=== PATIENT | female | born 1940 | race Caucasian/White ===

== ENCOUNTER → 2020-08-30 14:00 | Outpatient (BNVA) | payer MEDICARE, OTHER, SELFPAY | PROVIDERS: PCP Internal Medicine; Visit Provider Internal Medicine | DX: R53.83 Other fatigue (principal); F32.9 Major depressive disorder, single episode, unspecified; I10 Essential (primary) hypertension; Z79.899 Other long term (current) drug therapy | CPT/HCPCS: 80053; 82607; 82746; 83036; 83550; 84443; 85025 ==

== ENCOUNTER 2021-02-09 13:07 | Emergency (ER) | payer MEDICARE, SELFPAY ==
[2021-02-09 13:41] VITALS: BP 137/85; PULSE 85; RESP 18; TEMP 36.9; O2SAT 95; BMI 32.3
--- NOTE | 2021-02-09 14:02 | CT_ITS ---
WS: [id number] CT FACIAL BONES TECHNIQUE: Noncontrast facial bones with coronal and sagittal reformatted images. CLINICAL INFORMATION: fall COMPARISON: None. DLP: 724.[address] scans at [facility] use at least one of these dose optimization techniques: automat ed exposure control; mA and/or kV adjustment per patient size (includes targeted exams where dose is matched to clinical indication); or iterative reconstruction. FINDINGS: Soft tissue edema overlying the right orbit with soft tissue laceration. Chronic opacification left m axillary sinus. Bony orbits are normal in appearance. No evidence of orbital fracture. Lateral orbits are normal. Normal lamina papyracea. Orbital floor is normal. No evidence of mandibular fracture or dislocation. Mastoid air cells are well aerated. Anterior nasal bones are normal. Normal zygoma.Normal pterygoid plates. Normal posterior nasopharynx. Normal parapharyngeal fat. CT/CT facial bones wo con* [id number] IMPRESSION: 1. Soft tissue laceration overlying the right orbit. No orbital fractures. 2. No acute facial fractures. 3. Chronic opacification left maxillary sinus.
--- NOTE | 2021-02-09 14:02 | CT_ITS ---
WS: [id number] CT CERVICAL TRAUMA TECHNIQUE: Noncontrast CT of the cervical spine with coronal and sagittal reformatted images. CLINICAL INFORMATION: fall COMPARISON: None. DLP: 793.[address] scans at [facility] use at least one of these dose optimization techniques: automat ed exposure control; mA and/or kV adjustment per patient size (includes targeted exams where dose is matched to clinical indication); or iterative reconstruction. FINDINGS: Reversal of the normal cervical lordosis. Slight anterolisthesis C3 on C4 and C4 on C5. Disc space na rrowing worse at C5-C6 and C6-C7 with osteophytic ridging. Normal craniocervical junction. Normal C1-C2 articulation. Dens is normal in appearance. Normal occip ital condyles. No high-grade spinal canal narrowing. Normal C1 ring. Mild spondylitic changes. Normal prevertebral soft tissues. Mastoids air cells are well aerated. CT/CT cervical spin wo con* [id number] IMPRESSION: No evidence of acute fracture or dislocation. Reversal the normal cervical lord osis.
--- NOTE | 2021-02-09 14:02 | CT_ITS ---
WS: [id number] CT HEAD TECHNIQUE: Noncontrast CT of the head obtained from the skullbase to the vertex. CLINICAL INFORMATION: fall COMPARISON: None. DLP: 823.[address] scans at [facility] use at least one of these dose optimization techniques: automat ed exposure control; mA and/or kV adjustment per patient size (includes targeted exams where dose is matched to clinical indication); or iterative reconstruction. FINDINGS: No evidence of intracranial hemorrhage or mass effect. Ventricular system and basal cisterns are calvo nt. Mild small vessel changes with moderate parenchymal volume loss. No extra-axial fluid collections . No evidence of mass or mass effect. Normal luo-white differentiation. Opacification left maxillary sinus. Paranasal sinuses are otherwise well aerated where visualized. Ma stoid air cells well aerated. Small soft tissue laceration overlying right Orbit. CT/CT head wo con* [id number] IMPRESSION: 1. No evidence of intracranial hemorrhage or mass effect. 2. Mild small vessel changes. Moderate parenchymal volume loss. 3. No acute intracranial findings.
[2021-02-09] MEDS: lidocaine 1% INJ 20 mL INJECTION (15:30)
--- NOTE | 2021-02-09 15:30 | ED_ITS ---
HPI - Fall General: Chief Complaint: Fall Stated Complaint: FALL Time Seen by Provider: 02/09/21 14:02 Source: patient Mode of arrival: ambulatory Limitations: no limitations History of Present Illness: MD complaint: fall Onset (ago): hour(s) (2) Fall from: standing Fall witnessed: yes, by family Place fall occurred: other Loss of consciousness: None Prolonged down time: no Symptoms prior to fall: none Context: tripped/slipped Location of injury: head and face Severity: mild Quality: dull Associated symptoms-after fall: Reports no associated symptoms and headache(s); Denies abdominal pain, chest pain, confusion, difficulty walking, hematuria, lightheadedness, neck pain or vertigo Review of Systems Const: Denies: fever(s), chills, body aches, change in appetite, change in weight, fatigue, malaise or diaphoresis Eyes: Denies: change in vision, blurry vision, blind spots, photophobia, eye discomfort, eye discharge, eye redness, floaters or seeing flashes ENMT: Denies: throat pain, uvular edema, enlarged tonsils, odynophagia, hoarseness, mouth pain, swelling of lips/tongue, oral sores, bleeding gums, dental pain, dry mouth, ear or mastoid pain, ear discharge, change in hearing, tinnitus, disequilibrium, nasal discharge, nasal congestion, post nasal drip or sinus pain Card: Denies: chest pain, palpitations, irregular heart rhythm, edema, s welling of feet/ankles, lightheadedness, syncope, pre-syncope, dyspnea on exertion, orthopnea, leg pain with exertion or acrocyanosis Resp: Denies: dyspnea, productive cough, non-productive cough, wheezing, stridor, pain on inspiration, change in phlegm color, hemoptysis or chest congestion GI: Denies: abdominal pain, nausea, vomiting, hematemesis, dysphagia, diarrhea, constipation, GI cramping, change in bowel habits or rectal pain : Denies: flank pain, difficulty voiding, dysuria, urinary frequency, urinary urgency, urinary hesitancy or hematuria Musc: Denies: neck pain, back pain, extremity pain, extremity swelling, joint pain, joint swelling, joint redness, joint warmth or deformity Skin/Breast: Reports: skin tenderness and other (1 cm laceration above right eyebrow); Denies: rash, pruritus, erythema, sores, new lesions, changes in skin color or dry skin Neuro: Reports: headache(s); Denies: numbness in extremities, weakness in extremities, sensory changes, lack of coordination, difficulty walking, frequent falls, dizziness, vertigo, confusion, behavioral changes, Slurred speech present, difficulty communicating thoughts or seizure-like activity Psych: Denies: anxiety, depression, suicidal ideation or homicidal ideation Endo: Denies: polyuria, polydipsia, tired all the time, cold intolerance, excessive sweating, flushing, hot flashes or heat intolerance Ozzy/Lymph: Denies: easy bruising, easy bleeding, petechiae, purpura, enlarged lymph nodes or tender lymph nodes All/Imm: Denies: urticaria, throat swelling, tongue swelling, facial swelling, acute wheezing or itchy eyes PFSH ED PFSH: Family History Other Cancer Heart disease Social History Smoking and tobacco status: never smoked Alcohol intake: never Lives independently: Yes Household members: none Housing: House Marital status: / History of recent travel: No Physical Exam Const: COMMON NORMALS: no acute distress, patient oriented x3, healthy appearing, alert and well nourished GENERAL APPEARANCE: cooperative, comfortable, well kempt and well developed; not ill appearing ORIENTATION/CONSCIOUSNESS: Yes awake, Yes oriented to person, Yes oriented to place and Yes oriented to time HENMT: COMMON NORMALS: normocephalic, atraumatic, hearing grossly normal bilaterally, external ears normal, EAC's normal, TM's normal bilaterally, Normal external nose present, Normal nasal mucous membranes and turbinates present and moist oral mucous membranes HEAD & SCALP: normal to inspection, normocephalic and atraumatic FACE & SINUS: sinuses nontender, face symmetric and Facial tenderness on exam of face and sinuses (skin tear under right eye and 1 cm linear laceration above right eyebrow) NOSE: Normal external nose present, Normal nares present, Normal nasal mucous membranes and turbinates present, No nasal discharge present and Abnormal external nose present EXTERNAL EAR: Yes external ears normal and Yes mastoids normal EXTERNAL AUDITORY CANAL: EAC's normal TYMPANIC MEMBRANE: TM's normal bilaterally MOUTH: Normal oral and palatal mucosa present, lip normal, tongue normal and Normal salivary glands and ducts present THROAT: posterior oropharynx normal, tonsils normal and uvula midline; no uvular edema Eye: COMMON NORMALS: Equal, round and reactive pupils present, EOMs intact bilaterally, conjunctivae normal, no scleral icterus and no papilledema GENERAL EYE: appearance normal, both eyes and all related structures EYELID: eyelids normal CONJUNCTIVA: Yes conjunctivae normal SCLERA: sclerae normal CORNEA: Yes corneas normal PUPIL: Yes Equal, round and reactive pupils p resent DIRECT OPHTHALMOSCOPY: Yes no papilledema Neck/C-Spine: COMMON NORMALS: full ROM, no lymphadenopathy, supple, no meningeal signs, no JVD and Thyroid normal GENERAL: Yes normal visual inspection and Yes trachea midline THYROID: Thyroid normal CERVICAL SPINE: Yes cervical ROM normal Lymph: LYMPHATIC: no lymphadenopathy noted and no lymphedema noted Chest: COMMONS NORMALS: normal inspection of the chest and normal palpation of entire chest wall Resp: COMMON NORMALS: normal respiratory effort, No retractions, No use of accessory muscles and clear to auscultation bilaterally EFFORT & INSPECTION: Yes able to speak in complete sentences and Yes symmetric chest movement AUSCULTATION: clear to auscultation bilaterally Cardio: COMMON NORMALS: no JVD, regular rate and regular rhythm RATE: r egular rate RHYTHM: regular rhythm GI: COMMON NORMALS: Normal to inspection, nondistended, normoactive bowel sounds present, Soft to palpation, non-tender, No hepatosplenomegaly present, no masses and no bruits INSPECTION: Yes normal to inspection AUSCULTATION: Yes normoactive bowel sounds PALPATION: Yes Soft to palpation and Yes No hepatosplenomegaly present PERCUSSION: normal to percussion RECTAL EXAM: deferred : COMMON NORMALS: Yes no CVA tenderness, Yes normal external appearance, Yes normal appearance of the vagina, Yes normal appearance of the cervix, Yes normal bimanual exam, Yes No adnexal tenderness and Yes no masses BLADDER/KIDNEY EXAM: Yes no CVA tenderness BIMANUAL EXAM - VAGINA & UTERUS: Yes normal bimanual exam Back/Pelvis: COMMON NORMALS: no CVA tenderness, thoracic and lumbar spine normal to inspection, no thoracic nor lumbar tenderness, thoraco-lumbar ROM normal and straight leg raise negative bilaterally THORACIC SPINE/UPPER BACK: Yes normal to inspection LUMBAR SPINE/LOWER BACK: Yes normal to inspection Extremity: COMMON NORMALS: normal to inspection, full ROM and capillary refill normal GENERAL: Yes normal exam except as noted Neuro: COMMON NORMALS: patient oriented x3, CN's II-XII intact bilaterally, moves all extremities, no focal motor deficits, no sensory deficits noted, deep tendon reflexes 2+ bilaterally and gait normal SENSORIUM/ORIENTATION: Yes a lert, Yes oriented to person, Yes oriented to place and Yes oriented to time MENINGEAL SIGNS: Yes no meningeal signs CRANIAL NERVES: Yes CN normal except as noted SPEECH: speech normal GAIT: Yes Normal gait present SENSORY EXAM: Yes extremities MOTOR EXAM: 5/5 motor strength present throughout Psych: COMMON NORMALS: mental status grossly normal, Normal thought process present, cooperative, normal affect, speech normal, activity/motor behavior normal, denies hallucinations, denies homicidal ideation and denies suicidal ideation APPEARANCE: Yes grossly normal and Yes well kempt ATTITUDE: Yes calm ACTIVITY/MOTOR BEHAVIOR: Yes appropriate eye contact SPEECH: Yes normal speech THOUGHT PROCESS: Normal thought process present THOUGHT CONTENT: Yes Normal thought content present ATTENTION/CONCENTRATION: Yes attention grossly intact MEMORY/COGNITION: Yes memory grossly intact INSIGHT: Good insight present (Psych) JUDGEMENT: Good judgement present (Ps ych) Skin: COMMON NORMALS: no rashes or lesions noted, no wounds, turgor normal, no jaundice, no petechiae and no mottling GENERAL SKIN EXAM: no rashes or lesions noted and turgor normal Procedures Laceration Laceration 1: Site: face Size (cm): 1 Description: linear Depth: simple, single layer Local Anesthetic: lidocaine 1% Amount of anesthesia used (mL): 3 Pre-repair: wound explored and irrigated extensively Skin layer closed with: nylon Size (cm): 5-0 Number of sutures: 4 Technique: simple, interrupted Course Vital Signs: Vital signs: Vital Signs Temperature 98.4 F 02/09/21 13:41 Pulse Rate 85 02/09/21 13:41 Respiratory Rate 18 02/09/21 13:41 Blood Pressure 137/85 02/09/21 13:41 Pulse Oximetry 95 02/09/21 13:41 MDM - Fall MDM Narrative: Medical decision making narrative: Pt is well appearing non toxic and in no acute distress. Pts skin tear under right eye was cleansed and derma cee applied 3 layers. Please see procedure note for suture details. Pt has no focal neuro deficits and other than facial tenderness she states she feels fine. Pt had no chest pain sob or dizziness prior to fall states she tripped on carpet. pt did not have LOC and is not on blood thinners. Pt ct head, neck and facial bones are all negative for any acute findings. I discussed with patient wound care, return precautions related to head injury as well as home care. pt verbaloized understanding. Pt tetanus was up dated today Differential Diagnosis: Fall Differential Diagnosis: Likely syncope, dislocation of shoulder region, fracture of wrist, compression fracture, concussion with loss of consciousness and concussion without loss of conscious ness Discharge Plan Discharge Condition: Stable Prescriptions: No Action budesonide-formoterol [Symbicort] 160-4.5 mcg/actuation HFA aerosol inhaler 2 puff INHALATION BID RF: 0 furosemide [Lasix] 20 mg tablet 10 mg PO QAM PRNRF: 0 valsartan-hydrochlorothiazide 320-12.5 mg tablet 1 tab PO DAILY Qty: 90 RF: 3 escitalopram oxalate 20 mg tablet 20 mg PO DAILY Qty: 90 RF: 3 budesonide-formoterol [Symbicort] 160-4.5 mcg/actuation HFA aerosol inhaler 2 puff INHALATION BID Qty: 10.2 RF: 0 Discharge Orders: Discharge ED (Routine); Ordered 02/09/21 Ordered By: Vicki Chappell Referrals: Hiro Ellis MD [Primary Care Provider] - Discharge Diet: Advance as tolerated Discharge Activity: Increase activity as tolerated Patient Instructions: Concussion/Head Injury - Adult, Laceration (ED), Skin Adhesive Care (ED) Activity Restrictions/Additional Instructions: Please return to ER or PCP for suture removal in 4-5 days or sooner if Return to the ER if: headaches that get worse weakness or numbness in any part of your body coordination problems that get worse vomiting (that occurs more than once) slurred speech problems waking up from sleep more confusion, irritability, or anxiety any symptom that seems to be getting worse Coding Level of Care Code ED Incident Coordinator for Tarsha Finch
[2021-02-09] MEDS: tetanus-diphtheria tox (adult) 0.5 mL SDV IM (15:50)
== END 2021-02-09 16:03 | disposition home or self-care (01) ==
PROVIDERS: Emergency Provider Registered Nurse; PCP Internal Medicine
DX: S01.81XA Laceration without foreign body of other part of head, initial encounter (principal); W19.XXXA Unspecified fall, initial encounter; Z23 Encounter for immunization
CPT/HCPCS: 12011; 70450; 70486; 72125; 90471; 90714; 99283

== ENCOUNTER 2021-05-06 11:17 | Outpatient (CLI) | payer MEDICARE, OTHER, SELFPAY ==
--- NOTE | 2021-05-06 11:32 | XR_ITS ---
WS: [id number] Right foot, 2 views, 05/06/2021 Clinical Data: Non-healing foot ulcer Comparison: None. Findings: No fractures or dislocations are seen. No bone destruction or erosion is noted. The soft tissues are normal. 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 There is flexion deformity of the second through fourth toes. There is a plantar spur. There are calc ifications in the jesus of small vessels. XR/XR foot RT 2V [id number] Impression: Negative for osteomyelitis.
== END 2021-05-06 11:18 | disposition home or self-care (01) ==
LOC: RAD 11:28
PROVIDERS: PCP Internal Medicine; Visit Provider Nurse Practitioner Family
DX: L97.519 Non-pressure chronic ulcer of other part of right foot with unspecified severity (principal); R63.1 Polydipsia; R35.8 Other polyuria
CPT/HCPCS: 73620; 80053; 83036

== ENCOUNTER → 2022-02-06 15:53 | Outpatient (BNVA) | payer MEDICARE, OTHER, SELFPAY | PROVIDERS: PCP Internal Medicine; Visit Provider Internal Medicine | DX: I95.1 Orthostatic hypotension (principal); I10 Essential (primary) hypertension; I73.9 Peripheral vascular disease, unspecified; R53.83 Other fatigue; K52.9 Noninfective gastroenteritis and colitis, unspecified | CPT/HCPCS: 80053; 84443; 85025 ==

== ENCOUNTER → 2022-07-14 10:37 | Outpatient (BNVA) | payer MEDICARE, OTHER, SELFPAY | PROVIDERS: PCP Internal Medicine; Visit Provider Podiatrist Foot & Ankle Surgery | DX: I73.9 Peripheral vascular disease, unspecified (principal); L60.3 Nail dystrophy; M20.41 Other hammer toe(s) (acquired), right foot; M20.42 Other hammer toe(s) (acquired), left foot; L84 Corns and callosities | CPT/HCPCS: 11056; 11721 ==

== ENCOUNTER → 2022-09-05 09:51 | Outpatient (BNVA) | payer MEDICARE, OTHER, SELFPAY | PROVIDERS: PCP Internal Medicine; Visit Provider Podiatrist Foot & Ankle Surgery | DX: I73.9 Peripheral vascular disease, unspecified (principal); L84 Corns and callosities; L60.3 Nail dystrophy; M20.41 Other hammer toe(s) (acquired), right foot; M20.42 Other hammer toe(s) (acquired), left foot | CPT/HCPCS: 11721 ==

== ENCOUNTER → 2022-10-24 10:58 | Outpatient (BNVA) | payer MEDICARE, OTHER, SELFPAY | PROVIDERS: PCP Internal Medicine; Visit Provider Podiatrist Foot & Ankle Surgery | DX: I73.9 Peripheral vascular disease, unspecified (principal); L84 Corns and callosities; L60.3 Nail dystrophy; M20.41 Other hammer toe(s) (acquired), right foot; M20.42 Other hammer toe(s) (acquired), left foot | CPT/HCPCS: 11720; 28011; 93923 ==

== ENCOUNTER → 2022-10-31 12:52 | Outpatient (BNVA) | payer MEDICARE, OTHER, SELFPAY | PROVIDERS: PCP Internal Medicine; Visit Provider Podiatrist Foot & Ankle Surgery | DX: I73.9 Peripheral vascular disease, unspecified (principal); L84 Corns and callosities; L60.3 Nail dystrophy; M20.41 Other hammer toe(s) (acquired), right foot; M20.42 Other hammer toe(s) (acquired), left foot | CPT/HCPCS: 99024 ==

== ENCOUNTER → 2022-12-12 12:45 | Outpatient (BNVA) | payer MEDICARE, OTHER, SELFPAY | PROVIDERS: PCP Internal Medicine; Visit Provider Podiatrist Foot & Ankle Surgery | DX: I73.9 Peripheral vascular disease, unspecified (principal); L84 Corns and callosities; L60.3 Nail dystrophy; M20.41 Other hammer toe(s) (acquired), right foot; M20.42 Other hammer toe(s) (acquired), left foot | CPT/HCPCS: 99213 ==

== ENCOUNTER → 2022-12-21 08:08 | Outpatient (BNVA) | payer MEDICARE, OTHER, SELFPAY | PROVIDERS: PCP Internal Medicine; Visit Provider Podiatrist Foot & Ankle Surgery | DX: M20.41 Other hammer toe(s) (acquired), right foot (principal); I73.9 Peripheral vascular disease, unspecified; M20.42 Other hammer toe(s) (acquired), left foot; L84 Corns and callosities | CPT/HCPCS: 28010 ==

== ENCOUNTER → 2023-01-23 12:04 | Outpatient (BNVA) | payer MEDICARE, SELFPAY | PROVIDERS: PCP Internal Medicine; Visit Provider Nurse Practitioner Family | DX: R39.15 Urgency of urination (principal); J06.9 Acute upper respiratory infection, unspecified | CPT/HCPCS: 81000; 87077; 87086; 87184 ==

== ENCOUNTER → 2023-02-19 14:46 | Outpatient (BNVA) | payer MEDICARE, OTHER, SELFPAY | PROVIDERS: PCP Family Medicine; Visit Provider Family Medicine | DX: M15.9 Polyosteoarthritis, unspecified (principal); F32.9 Major depressive disorder, single episode, unspecified; K52.9 Noninfective gastroenteritis and colitis, unspecified; I10 Essential (primary) hypertension | CPT/HCPCS: 80053; 80061; 85025; 86003; 86008 ==

== ENCOUNTER 2023-03-27 11:20 | Emergency (ER) | payer MEDICARE, OTHER, SELFPAY ==
[2023-03-27] VITALS (8 sets, daily range): BP systolic 122–204; BP diastolic 61–106; PULSE 64–92; RESP 18–25; TEMP 36.7; O2SAT 91–98; BMI 36.6
--- NOTE | 2023-03-27 11:40 | ECG_ITS ---
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 Measurements Intervals [place] Rate: 83 P: 0 OK: 0 QRS: 44 QRSD: 126 T: -77 QT: 356 QTc: 419 Interpretive Statements ATRIAL FIBRILLATION RIGHT BUNDLE BRANCH BLOCK [120+ ms QRS DURATION, UPRIGHT V1, 40+ ms S IN I/aVL/V4/V5/V6] MODERATE T-WAVE ABNORMALITY, CONSIDER INFERIOR ISCHEMIA [-0.1+ mV T-WAVE IN II/aVF] No previous ECG available for comparison Electronically Signed On 03-27-2023 11:58:29 CDT by Sheryl Felix M.D. [id number]
--- NOTE | 2023-03-27 11:41 | ED_ITS ---
HPI - Arrhythmia/Palpitations General: Chief Complaint: Arrhythmia/Palpitations Stated Complaint: Afib/ Low PB Time Seen by Provider: 03/27/23 11:21 History of Present Illness: Patient is having cataract surgery by this morning. Patient developed hypotension and bradycardia and went into A-fib per report. Patient was given Rigoberto-Synephrine and atropine and patient was sent to the ER for further evaluation and treatment. Patient arrived here with a pulse of 92 blood pressure in the 170s and feeling good with no complaints. Was her first cataract surgery she is scheduled to have her right cataract done in about 2 weeks. Review of Systems General: Reports: 10 or more systems reviewed and unremarkable except in HPI and below PFSH ED PFSH: Medical History Apnea, sleep Asthma, cough variant Benign hypertension Bradycardia, unspecified Major depressive disorder, recurrent, in full remission Polyneuropathy, unspecified Pulmonary HTN Surgical History History of bilateral hip arthroplasty History of total right knee replacement Family History Other Cancer Heart disease Social History Smoking and tobacco status: never smoked Alcohol intake: never Substance/Drug Use: never Lives independently: Yes Household members: none Housing: House Marital status: / Physical Exam Const: COMMON NORMALS: no acute distress, average body habitus, patient oriented x3, no limitations, healthy appearing, alert and well nourished HENMT: COMMON NORMALS: normocephalic, atraumatic, hearing grossly normal bilaterally, external ears normal, Normal external nose present and moist oral mucous membranes HEAD & SCALP: normocephalic and atraumatic NOSE: Normal external nose present EXTERNAL EAR: Yes external ears normal Neck/C-Spine: COMMON NORMALS: full ROM, no lymphadenopathy, supple, no meningeal signs, no JVD and Thyroid normal THYROID: Thyroid normal Chest: COMMONS NORMALS: normal inspection of the chest and normal palpation of entire chest wall Resp: COMMON NORMALS: normal respiratory effort, No retractions, No use of accessory muscles and clear to auscultation bilaterally AUSCULTATION: clear to auscultation bilaterally Cardio: COMMON NORMALS: no JVD, regular rate, regular rhythm, S1 normal heart sound present, S2 normal heart sound present, No gallops present (Cardio), No clicks present (Cardio), No murmurs present (Cardio) and No rub (Cardio) RATE: regular rate RHYTHM: regular rhythm HEART SOUNDS: S1 normal heart sound present and S2 normal heart sound present GI: COMMON NORMALS: Normal to inspection, nondistended, normoactive bowel sounds present, Soft to palpation, non-tender, No hepatosplenomegaly present and no masses PALPATION: Yes Soft to palpation and Yes No hepatosplenomegaly present : COMMON NORMALS: Yes no CVA tenderness BLADDER/KIDNEY EXAM: Yes no CVA tenderness Back/Pelvis: COMMON NORMALS: no CVA tenderness Neuro: COMMON NORMALS: patient oriented x3 SENSORIUM/ORIENTATION: Yes alert MENINGEAL SIGNS: Yes no meningeal signs Course Vital Signs: Vital signs: Vital Signs Temperature 98.0 F 03/27/23 11:22 Pulse Rate 75 03/27/23 16:26 Respiratory Rate 18 03/27/23 16:26 Blood Pressure 122/61 03/27/23 16:26 Pulse Oximetry 94 03/27/23 16:26 Oxygen Delivery Me thod Room Air 03/27/23 16:26 MDM - Arrhythmia/Palpitations Medical Decision Making From the local surgery center where she is having cataract surgery to the ER for further evaluation and treatment of bradycardia and hypotension. Patient was noted to have atrial fibrillation rhythm upon arrival which she carried onto the rest of her visit. Patient has no history of atrial fibrillation. Patient's initial cardiac enzymes was mildly elevated and they went up for her 2-hour troponi but stable for 6-hour troponin. Patient was reluctant to come inpatient to the hospital for further evaluation and treatment. Patient will be started on Eliquis and referred back to her family physician for further evaluation and management. Differential Diagnosis Unlikely palpitations, anxiety, sinus tachycardia, artial fibrillation, artial flutter, ventricular premature beats, supraventricular tachycardia, ventricular tachycardia or WPW Medical Records I reviewed the patient's medical records. Lab Data I reviewed the patient's lab results. 03/27/23 11:45 03/27/23 11:45 Laboratory Results WBC 9.5 10^3/uL (4.0-10.0) 03/27/23 11:45 RBC 4.41 10^6/uL (4.1-5.3) 03/27/23 11:45 Hgb 13.9 g/dL (11.5-15.3) 03/27/23 11:45 Hct 42.0 % (37.0-47.0) 03/27/23 11:45 MCV 95.2 fl (81-99) 03/27/23 11:45 MCH 31.5 pg (28.0-34.0) 03/27/23 11:45 MCHC 33.1 g/dL (30.0-36.0) 03/27/23 11:45 RDW 12.7 % (12.1-15.1) 03/27/23 11:45 Plt Count 213 10^3/cmm (130-400) 03/27/23 11:45 MPV 9.4 fL (7.4-10.4) 03/27/23 11:45 Neut % (Auto) 82.2 % 03/27/23 11:45 Lymph % (Auto) 10.8 % 03/27/23 11:45 [facility] [place] [facility] % (Auto) 4.7 % 03/27/23 11:45 Eos % (Auto) 1.6 % 03/27/23 11:45 Baso % (Auto) 0.4 % 03/27/23 11:45 Neut # (Auto) 7.77 10^3/uL (1.8-7.7) H 03/27/23 11:45 Lymph # (Auto) 1.0 10^3/uL (0.8-4.8) 03/27/23 11:45 [facility] # (Auto) 0.4 10^3/uL (0.2-0.9) 03/27/23 11:45 Eos # (Auto) 0.2 10^3/uL (0.0-0.8) 03/27/23 11:45 Baso # (Auto) 0.0 10^3/uL (0.0-0.1) 03/27/23 11:45 Nucleated RBC % (auto) 0 % 03/27/23 11:45 Nucleated RBCs # 0.0 /100WBC 03/27/23 11:45 Sodium 143 mmol/L (136-145) 03/27/23 11:45 Potassium 4.2 mmol/L (3.5-5.1) 03/27/23 11:45 Chloride 105 mmol/L (98-107) 03/27/23 11:45 Carbon Dioxide 27 mmol/L (22-29) 03/27/23 11:45 Anion Gap 15.2 (5-19) 03/27/23 11:45 BUN 21 mg/dL (8-23) 03/27/23 11:45 Creatinine 0.8 mg/dL (0.5-0.9) 03/27/23 11:45 GFR Calculation Not Reportable 03/27/23 11:45 Glucose 119 mg/dL (65-115) H 03/27/23 11:45 Calculated Osmolality 300 mOsm/kg (285-295) H 03/27/23 11:45 Calcium 9.2 mg/dL (8.5-10.5) 03/27/23 11:45 Magnesium 1.6 mg/dL (1.7-2.3) L 03/27/23 11:45 Total Bilirubin 0.6 mg/dL (0.15-1.2) 03/27/23 11:45 AST 20 U/L (0-32) 03/27/23 11:45 ALT 17 U/L (0-33) 03/27/23 11:45 Alkaline Phosphatase 67 U/L (35-105) 03/27/23 11:45 Troponin T Gen 5 ng/L 36 ng/L (0-10) H 03/27/23 17:50 Total Protein 6.5 g/dL (6.6-8.7) L 03/27/23 11:45 Albumin 4.2 g/dL (3.5-5.2) 03/27/23 11:45 Globulin 2.3 g/dL (1.3-4.6) 03/27/23 11:45 EKG Data EKG 1: I personally reviewed and interpreted this EKG as follows: EKG interpretation date: 03/27/23 EKG interpretation time: 11:50 Prior EKG tracings: not available for review Interpretation: EKG showed atrial fibrillation with ventricular rate 83 beats minute, right bundle branch block, QRS duration 126, QTc of 396, moderate T wave abnormality Discharge Plan Discharge Patient Disposition: Home Clinical Impression: Atrial fibrillation Qualifiers: Atrial fibrillation type: unspecified Qualified Code(s): I48.91 - Unspecified a trial fibrillation Condition: Stable Prescriptions: New Eliquis 5 mg tablet 5 mg PO BID Qty: 30 0RF No Action celecoxib [Celebrex] 200 mg capsule 200 mg PO BID Qty: 180 3RF Anti-Diarrhea 2 mg Tablet 4 mg PO BID pantoprazole 40 mg tablet,delayed release (DR/EC) 40 mg PO QAM valsartan-hydrochlorothiazide 80-12.5 mg tablet 1 tab PO QAM escitalopram oxalate 20 mg tablet 20 mg PO QAM Discharge Orders: Discharge ED (Routine); Ordered 03/27/23 Ordered By: Junito Garcia Referrals: Ayana Lemons DO [Primary Care Provider] - 7-10 days Patient Instructions: A-fib (Atrial Fibrillation) (ED) Activity Restrictions/Additional Instructions: Please take all your medicine as prescribed. This includes your new anticoagulant to help your blood from clotting. Please follow-up with your family practice physician for further testing such as echocardiogram, carotid ultrasound, and/or referral to a locomotive lubricating systems clerk. Coding Level of Care Code ED Steel Rule Die Maker for Tarsha Finch
--- NOTE | 2023-03-27 11:55 | XR_ITS ---
WS: [id number] PORTABLE CHEST HISTORY: palpitations COMPARISON: None available. Lungs are clear and well expanded. Slight elevation right hemidiaphragm. No pleural effusion or pneum othorax. Cardiac size: Normal. Mediastinum/Aorta: Normal mediastinum. No osseous abnormality seen. External artifacts overlying the chest. IMPRESSION: Unremarkable portable chest.
[2023-03-27 11:56] LABS: Basophils % 0.4 %; Eosinophils # 0.2 10^3/uL (0.0-0.8); Eosinophils % 1.6 %; Hemoglobin 13.9 g/dL (11.5-15.3); Lymphocytes % 10.8 %; Mean Corpuscular HGB Conc 33.1 g/dL (30.0-36.0); Mean Corpuscular Hemoglobin 31.5 pg (28.0-34.0); Mean Corpuscular Volume 95.2 fl (81-99); Mean Platelet Volume 9.4 fL (7.4-10.4); Monocytes # 0.4 10^3/uL (0.2-0.9); Monocytes % 4.7 %; Neutrophils # 7.77 10^3/uL (1.8-7.7); Neutrophils % 82.2 %; Nucleated Red Blood Cells % 0 %; Platelet Count 213 10^3/cmm (130-400); Red Blood Count 4.41 10^6/uL (4.1-5.3); Red Cell Distribution Width 12.7 % (12.1-15.1); White Blood Count 9.5 10^3/uL (4.0-10.0)
[2023-03-27 12:15] LABS: Alanine Aminotransferase 17 U/L (0-33); Albumin Level 4.2 g/dL (3.5-5.2); Alkaline Phosphatase 67 U/L (35-105); Anion Gap 15.2 (5-19); Aspartate Amino Transferase 20 U/L (0-32); Blood Urea Nitrogen 21 mg/dL (8-23); Calcium 9.2 mg/dL (8.5-10.5); Carbon Dioxide 27 mmol/L (22-29); Chloride 105 mmol/L (98-107); Globulin 2.3 g/dL (1.3-4.6); Glucose 119 mg/dL (65-115); Magnesium 1.6 mg/dL (1.7-2.3); Osmolality Calculated 300 mOsm/kg (285-295); Potassium 4.2 mmol/L (3.5-5.1); Sodium 143 mmol/L (136-145); Total Bilirubin 0.6 mg/dL (0.15-1.2); Total Protein 6.5 g/dL (6.6-8.7)
[2023-03-27 12:41] LABS: Troponin T (5th) Once 18 ng/L (0-10)
[2023-03-27] MEDS: cloNIDine 0.1 mg Tablet PO (13:07)
[2023-03-27 14:29] LABS: Troponin T (5th) Once 38 ng/L (0-10)
[2023-03-27 18:19] LABS: Troponin T (5th) Once 36 ng/L (0-10)
[2023-03-27] MEDS: apixaban 5 mg Tablet PO (19:03)
== END 2023-03-27 19:54 | disposition home or self-care (01) ==
PROVIDERS: Emergency Provider Emergency Medicine; PCP Family Medicine
DX: I48.91 Unspecified atrial fibrillation (principal); I10 Essential (primary) hypertension
CPT/HCPCS: 36415; 71045; 80053; 83735; 84484; 85025; 93005; 96365; 96366; 99285; J3475

== ENCOUNTER → 2023-04-17 14:34 | Outpatient (BNVA) | payer MEDICARE, OTHER, SELFPAY | PROVIDERS: PCP Family Medicine; Visit Provider Family Medicine | DX: M15.9 Polyosteoarthritis, unspecified (principal); R31.9 Hematuria, unspecified | CPT/HCPCS: 81003 ==

== ENCOUNTER 2023-05-01 12:17 | Outpatient (CLI) | payer MEDICARE, SELFPAY ==
--- NOTE | 2023-05-01 12:45 | US_ITS ---
WS: [id number] RENAL ULTRASOUND HISTORY: hematuria COMPARISON: None available. TECHNIQUE: 2-D and color Doppler imaging of the kidney submitted. Right kidney: 10.4 cm x 3.9 cm x 5.4 cm. Cortex: 1.1 cm Normal echogenicity with no hydronephrosis or mass. Left kidney: 8.9 cm x 3.9 cm x 5.1 cm. Cortex: 1.0 cm Low normal size LEFT kidney with mild cortical thinning. No mass or obstruction. Aorta: Normal. Urinary Bladder: Normal distention. IMPRESSION: 1. No renal obstruction. 2. Low normal size LEFT kidney. 3. No renal calcifications or solid mass identified.
--- NOTE | 2023-05-01 13:15 | USCV_ITS ---
Milana Galvan Age: 83 Gender: F : 1940 Exam Date: 05/01/2023 13:38 Ordering Phys: Ayana Lemons DO Technologist: Irineo Friedman Exam Location: [facility] Indication: chest pain BP: 120 / 70 HR: 74 Rhythm: Sinus Technical Quality: Adequate MEASUREMENTS (Male / Female) Normal Values 2D ECHO LV Diastolic Diameter PLAX 4.4 cm 4.2 - 5.9 / 3.9 - 5.3 cm LV Systolic Diameter PLAX 2.7 cm IVS Diastolic Thickness 1.1 cm 0.6 - 1.0 / 0.6 - 0.9 cm IVS Systolic Thickness 1.3 cm LVPW Diastolic Thickness 1.0 cm 0.6 - 1.0 / 0.6 - 0.9 cm LVPW Systolic Thickness 1.5 cm LVOT Diameter 2.0 cm LV Ejection Fraction 2D Teich 70.3 % LA Diameter 4.5 cm IVC Diameter 1.9 cm M-MODE Aortic Annulus Diameter 2.9 cm LA Ao Ratio MM 1.6 MV E Point Septal Separation 1.3 cm DOPPLER AV Peak Velocity 106.0 cm/s LVOT Peak Velocity 101.0 cm/s AV Area Cont Eq vti 3.6 cm squared AV Area Cont Eq pk 3.1 cm squared MV Area PHT 4.2 cm squared Mitral E to A Ratio 3.1 MV E' Velocity 61.5 cm/s Mitral E to MV E' Ratio 9.5 Mitral E to LV E' Lateral Ratio 9.2 Mitral E to LV E' Septal Ratio 10.1 TR Peak Velocity 325.0 cm/s TR Peak Gradient 42.3 mmHg TV Peak E Velocity 115.0 cm/s Right Atrial Pressure 3.0 mmHg Pulmonary Artery Systolic Pressu 45.3 mmHg RV Acceleration Time 0.1 s FINDINGS Left Ventricle Normal left ventricular size and systolic function, EF 70%.mild left ventricular hypertrophy. No regional wall motion abnormalities. Right Ventricle Normal right ventricular size and systolic function. Right Atrium Moderately increased right atrial size. Left Atrium Moderately increased left atrial size. Mitral Valve Mild mitral valve regurgitation. Aortic Valve Thickened aortic valve. Tricuspid Valve Bpxgdgjb-vn-jlxwkh tricuspid valve regurgitation. Estimated pulmonary artery peak systolic pressure 45 mmHg Pulmonic Valve Trace pulmonary valve regurgitation. Pericardium No pericardial effusion. Aorta Normal ascending aorta dimension. IVC The inferior vena cava appears normal. CONCLUSIONS Normal left ventricular size and systolic function, EF 70%.mild left ventricular hypertrophy. No regional wall motion abnormalities. Axcdeasq-mi-coiqlb tricuspid valve regurgitation. Estimated pulmonary artery peak systolic pressure 45 mmHg Moderate biatrial enlargement. Mild mitral valve regurgitation. Thickened aortic valve. Trace pulmonary valve regurgitation. There is no pericardial effusion. There are no intracardiac masses. Compared to the study from 10/31/2017, there is significant worsening of the tricuspid regurgitation Dr Edgar Winston MD [facility] (Electronically Signed) Final Date: 01 May 2023 20:06 S
== END 2023-05-01 12:18 | disposition home or self-care (01) ==
PROVIDERS: PCP Family Medicine; Visit Provider Family Medicine
DX: I48.91 Unspecified atrial fibrillation (principal); R31.9 Hematuria, unspecified; R07.9 Chest pain, unspecified; I07.1 Rheumatic tricuspid insufficiency; I34.0 Nonrheumatic mitral (valve) insufficiency
CPT/HCPCS: 76770; 93306

== ENCOUNTER 2023-05-04 07:17 | Outpatient (CLI) | payer MEDICARE, SELFPAY ==
[2023-05-04 08:22] VITALS: BMI 35.5
--- NOTE | 2023-05-04 08:22 | ECG_ITS ---
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 Interpretive Statements NAME OF STUDY: LEXISCAN SESTAMIBI STRESS TEST INDICATION: [new onseet afib, ] Procedure: At the baseline, the blood pressure was 144/73 mmHg with a heart rate of 78 bpm. The electrocardiogram showed atrial fibrillation, right bundle branch block. The Lexiscan was infused over a period of 20 seconds. A total of 0.4 mg of Lexiscan was infused. The stress phase was continued for a total of 5 minutes. Heart rate was at the end of stress phase was 90 bpm and a blood pressure of 123/72 mmHg. The EKG at the peak infusion revealed atrial fibrillation with no significant ST-T wave changes. Occasional PVCs were seen. Sestamibi was injected 20 seconds after the Lexiscan infusion. Blood pressure at the end of recovery phase was 117/69 mmHg with a heart rate of 83 bpm. Conclusion: 1. Normal EKG response to Lexiscan infusion 2. No Lexiscan induced chest pain or cardiac arrhythmia. 3. Normal blood pressure and heart rate response. 4. Sestamibi/sestamibi perfusion scan pending; see separate report. Electronically Signed On 05-14-2023 12:36:17 CDT by Nba Tamez M.D. [id number]
--- NOTE | 2023-05-04 08:23 | NMCV_ITS ---
NM jose perf SPECT r/s* [id number] Milana Galvan Age: 83 Gender: F : 1940 Exam Date: 05/04/2023 08:50 Ordering Phys: Ayana Lemons DO Technologist: PATRICIA Ochao Exam Location: [facility] Indications: AFIB STRESS TEST Please see separate stress test report in [facility] for full findings IMAGE PROTOCOL Rest/Stress 1 Lexiscan Day Radiopharmaceutical Dose (mCi) Administration Site Administered by Rest: Tc-99m 10.7 IV PATRICIA Joseph Sestamibi Stress:Tc-99m 32.7 IV PATRICIA Stephenson Sestamibi Rest: 04-May-2023 60 Discovery 630 Stress: 04-May-2023 30 Discovery 630 0.4mg Lexiscan. Images obtained in supine and prone position. SPECT RESULTS Technical Quality: Excellent Raw Data Analysis: Normal Image Corrections: No attenuation or motion correction applied Summed Stress Score: 0 Summed Rest Score: 1 Summed Difference Score: 0 PERFUSION FINDINGS SPECT images demonstrate homogeneous tracer distribution throughout the myocardium. FUNCTIONAL RESULTS (calculated via Gated SPECT) Stress Image LV EF (%): 87 Stress EDV (mL):53 TID: 1.55 Stress ESV (mL):7 FUNCTIONAL FINDINGS: There is normal left ventricular systolic function. TID ratio is elevated. IMPRESSIONS 1. Normal myocardial perfusion imaging with no evidence of ischemia 2. LV systolic function is normal 3. TID ratio is elevated but in absence of significant perfusion abnormality, significance of this finding is equivocal. Nba Tamez MD (Electronically Signed) Final Date: 04 May 2023 13:24 S
[2023-05-04] MEDS: regadenoson 0.4 Mg/5 ml Syringe IVP (09:24)
[2023-05-04 09:49] VITALS: BP 117/69; PULSE 86
== END 2023-05-04 07:18 | disposition home or self-care (01) ==
PROVIDERS: PCP Family Medicine; Visit Provider Family Medicine
DX: I48.91 Unspecified atrial fibrillation (principal)
CPT/HCPCS: 36415; 78452; 93017; 96374; A9500; J2785

== ENCOUNTER → 2023-05-16 12:32 | Outpatient (BNVA) | payer MEDICARE, SELFPAY | PROVIDERS: PCP Family Medicine; Referring Provider Family Medicine; Visit Provider Internal Medicine | DX: R07.9 Chest pain, unspecified (principal); I48.91 Unspecified atrial fibrillation; I45.10 Unspecified right bundle-branch block; I10 Essential (primary) hypertension | CPT/HCPCS: 93005; 99204 ==

== ENCOUNTER → 2023-11-15 14:52 | Outpatient (BNVA) | payer MEDICARE, SELFPAY | PROVIDERS: PCP Family Medicine; Visit Provider Internal Medicine | DX: I48.91 Unspecified atrial fibrillation (principal); I10 Essential (primary) hypertension; Z79.01 Long term (current) use of anticoagulants | CPT/HCPCS: 99214 ==

== ENCOUNTER 2023-11-16 14:26 | Outpatient (CLI) | payer MEDICARE, SELFPAY ==
[2023-11-16 15:15] LABS: Anion Gap 17.1 (5-19); Blood Urea Nitrogen 28 mg/dL (8-23); Calcium 9.7 mg/dL (8.5-10.5); Carbon Dioxide 25 mmol/L (22-29); Chloride 107 mmol/L (98-107); Glucose 99 mg/dL (65-115); NT Pro B Type Natriuretic Pept 2867 pg/mL (0-450); Osmolality Calculated 306 mOsm/kg (285-295); Potassium 4.1 mmol/L (3.5-5.1); Sodium 145 mmol/L (136-145)
== END 2023-11-16 14:27 | disposition home or self-care (01) ==
LOC: LAB 14:28
PROVIDERS: PCP Family Medicine; Visit Provider Internal Medicine
DX: I48.91 Unspecified atrial fibrillation (principal); I10 Essential (primary) hypertension
CPT/HCPCS: 36415; 80048; 83880

== ENCOUNTER 2023-12-05 11:36 | Outpatient (CLI) | payer MEDICARE, SELFPAY ==
[2023-12-05 12:38] LABS: Anion Gap 18.1 (5-19); Blood Urea Nitrogen 29 mg/dL (8-23); Calcium 9.2 mg/dL (8.5-10.5); Carbon Dioxide 26 mmol/L (22-29); Chloride 100 mmol/L (98-107); Glucose 124 mg/dL (65-115); NT Pro B Type Natriuretic Pept 1893 pg/mL (0-450); Osmolality Calculated 297 mOsm/kg (285-295); Potassium 4.1 mmol/L (3.5-5.1); Sodium 140 mmol/L (136-145)
== END 2023-12-05 11:37 | disposition home or self-care (01) ==
LOC: LAB 11:38
PROVIDERS: PCP Family Medicine; Visit Provider Internal Medicine
DX: I10 Essential (primary) hypertension (principal); I73.9 Peripheral vascular disease, unspecified; I48.91 Unspecified atrial fibrillation
CPT/HCPCS: 36415; 80048; 83880

== ENCOUNTER 2023-12-13 11:57 | Outpatient (CLI) | payer MEDICARE, SELFPAY ==
[2023-12-13 12:55] LABS: Anion Gap 20.7 (5-19); Blood Urea Nitrogen 37 mg/dL (8-23); Calcium 9.2 mg/dL (8.5-10.5); Carbon Dioxide 27 mmol/L (22-29); Chloride 97 mmol/L (98-107); Glucose 115 mg/dL (65-115); NT Pro B Type Natriuretic Pept 2334 pg/mL (0-450); Osmolality Calculated 302 mOsm/kg (285-295); Potassium 3.7 mmol/L (3.5-5.1); Sodium 141 mmol/L (136-145)
== END 2023-12-13 11:58 | disposition home or self-care (01) ==
LOC: LAB 11:59
PROVIDERS: PCP Family Medicine; Visit Provider Internal Medicine
DX: I48.91 Unspecified atrial fibrillation (principal); I10 Essential (primary) hypertension
CPT/HCPCS: 36415; 80048; 83880

== ENCOUNTER 2023-12-24 12:35 | Outpatient (CLI) | payer MEDICARE, SELFPAY ==
[2023-12-24 14:06] LABS: Blood Urea Nitrogen 22 mg/dL (8-23); Calcium 8.9 mg/dL (8.5-10.5); Carbon Dioxide 26 mmol/L (22-29); Chloride 104 mmol/L (98-107); Glucose 113 mg/dL (65-115); NT Pro B Type Natriuretic Pept 2928 pg/mL (0-450); Osmolality Calculated 300 mOsm/kg (285-295); Sodium 143 mmol/L (136-145)
== END 2023-12-24 12:36 | disposition home or self-care (01) ==
LOC: LAB 12:37
PROVIDERS: Internal Medicine; PCP Family Medicine
DX: I48.91 Unspecified atrial fibrillation (principal); I10 Essential (primary) hypertension
CPT/HCPCS: 36415; 80048; 83880

== ENCOUNTER 2024-01-08 13:39 | Outpatient (CLI) | payer MEDICARE, SELFPAY ==
[2024-01-08 15:19] LABS: Anion Gap 16.9 (5-19); Blood Urea Nitrogen 30 mg/dL (8-23); Calcium 9.3 mg/dL (8.5-10.5); Carbon Dioxide 27 mmol/L (22-29); Chloride 103 mmol/L (98-107); Glucose 79 mg/dL (65-115); NT Pro B Type Natriuretic Pept 2602 pg/mL (0-450); Osmolality Calculated 301 mOsm/kg (285-295); Potassium 3.9 mmol/L (3.5-5.1); Sodium 143 mmol/L (136-145)
== END 2024-01-08 13:40 | disposition home or self-care (01) ==
LOC: LAB 13:40
PROVIDERS: PCP Family Medicine; Visit Provider Internal Medicine
DX: I48.91 Unspecified atrial fibrillation (principal); I10 Essential (primary) hypertension
CPT/HCPCS: 36415; 80048; 83880

== ENCOUNTER → 2024-01-24 13:27 | Outpatient (BNVA) | payer MEDICARE, SELFPAY | PROVIDERS: PCP Family Medicine; Visit Provider Family Medicine | DX: E87.70 Fluid overload, unspecified (principal); I10 Essential (primary) hypertension; I48.91 Unspecified atrial fibrillation; I73.9 Peripheral vascular disease, unspecified | CPT/HCPCS: 80053 ==

== ENCOUNTER → 2024-05-27 08:13 | Outpatient (BNVA) | payer MEDICARE, SELFPAY | PROVIDERS: PCP Family Medicine; Visit Provider Family Medicine | DX: I48.91 Unspecified atrial fibrillation (principal) | CPT/HCPCS: 80048 ==

== ENCOUNTER 2024-07-29 07:41 | Observation (INO) | payer MEDICARE, SELFPAY ==
[2024-07-29] VITALS (36 sets, daily range): BP systolic 115–158; BP diastolic 42–80; PULSE 42–456; RESP 13–31; TEMP 36.7–36.9; O2SAT 89–99; BMI 36.6; BMI 37.6
--- NOTE | 2024-07-29 07:58 | CT_ITS ---
WS: [id number] CT scan of the head, 07/29/2024 Clinical Data: Trauma Comparison: CT head, 02/09/2021 DLP: 1004.[address] scans at [facility] use at least one of these dose optimization techniques: automated e xposure control; mA and/or kV adjustment per patient size (includes targeted exams where dose is matc hed to clinical indication); or iterative reconstruction. Findings: The ventricular system is modestly dilated without shift. No recent infarct or hemorrhage is seen. Th ere are no abnormal intracerebral masses. The cerebellum and brainstem are not remarkable. Bony windows of the skull and skull base show no fractures or erosions. The mastoid air cells, internetworking technician al auditory canals, sella turcica, intraorbital contents, and paranasal sinuses are unremarkable. CT/CT head wo con* 85037 Impression: Moderate cerebral atrophy.
--- NOTE | 2024-07-29 07:58 | XR_ITS ---
WS: [id number] Portable AP upright chest, 07/29/2024 Clinical Data: dyspnea/cough Comparison: Portable chest, 03/27/2023 Findings: No nodules, masses or effusions are seen. The heart is normal. The pulmonary vascularity is not increased. No pneumonia or pneumothorax is seen. The aortic arch shows tortuosity. The right neena phragm is slightly elevated unchanged. XR/XR chest 1V portable 20340 Impression: Atherosclerosis.
--- NOTE | 2024-07-29 08:08 | W.ED.SYNCOPE ---
HPI - Syncope General: Chief Complaint: Syncope Stated Complaint: Fall, Syncope Time Seen by Provider: 07/29/24 07:43 History of Present Illness: 84-year-old female who presents to the emergency room after a syncopal episode. She had a couple of syncopal episodes in the last week. Some happen spontaneously. They are not always associated with change in posture. She has a history of atrial fibrillation she currently is on metoprolol tartrate as well as apixaban she denies any recent change in medications. In addition to this she is on furosemide and valsartan. She is not currently having any chest pain. No nausea or vomiting. Associated symptoms: Deny abdominal pain, chest pain or fever(s) Related Data Home Medications Medication Instructions Recorded Confirmed acetaminophen 325 mg tablet 650 mg PO QID PRN pain or fever 07/29/24 07/29/24 (Tylenol) apixaban 5 mg tablet (Eliquis) 5 mg PO BID 07/29/24 07/29/24 metoprolol tartrate 25 mg tablet 25 mg PO BID 07/29/24 07/29/24 valsartan 40 mg tablet 40 mg PO DAILY 07/29/24 07/29/24 Previous Rx's Medication Instructions Recorded potassium chloride 20 mEq 40 meq (2 x 20 mEq) PO DAILY #90 05/27/24 tablet,extended release tabs torsemide 20 mg tablet 40 mg (2 x 20 mg) PO BID #180 tabs 05/27/24 escitalopram oxalate 20 mg tablet 20 mg PO QAM #90 tabs 07/07/24 meloxicam 15 mg tablet 15 mg PO DAILY PRN shoulder pain 07/07/24 #20 tabs Allergies Allergy/AdvReac Type Severity Reaction Status Date / Time codeine AdvReac ADR-Itching Verified 07/07/24 08:43 desvenlafaxine [From Pristiq] AdvReac Unknown Verified 07/07/24 08:43 red meat Allergy Unknown Uncoded 07/07/24 08:43 Review of Systems Const: Denies: fever(s) or chills Card: Denies: chest pain Resp: Denies: dyspnea GI: Denies: abdominal pain : Denies: dysuria, urinary frequency or urinary urgency Musc: Denies: neck pain or back pain Skin/Breast: Denies: rash PFSH ED PFSH: Medical History Major depressive disorder, recurrent, in full remission Asthma, cough variant Polyneuropathy, unspecified Pulmonary HTN Apnea, sleep Bradycardia, unspecified Benign hypertension Surgical History History of total right knee replacement History of bilateral hip arthroplasty Family History Other Cancer Heart disease Social History Smoking and tobacco/nicotine status: never used tobacco/nicotine Alcohol intake: never Substance/Drug Use: never Lives independently: Yes Household members: none Housing: House Marital status: / Physical Exam Const: GENERAL APPEARANCE: cooperative ORIENTATION/CONSCIOUSNESS: Yes awake, Yes oriented to person, Yes oriented to place and Yes oriented to time HENMT: COMMON NORMALS: normocephalic, atraumatic and hearing grossly normal bilaterally HEAD & SCALP: normocephalic and atraumatic Resp: COMMON NORMALS: normal respiratory effort, No retractions, No use of accessory muscles and clear to auscultation bilaterally AUSCULTATION: clear to auscultation bilaterally Cardio: COMMON NORMALS: No murmurs present (Cardio) RATE: bradycardic RHYTHM: abnormal rhythm irregularly irregular GI: COMMON NORMALS: Soft to palpation and No hepatosplenomegaly present AUSCULTATION: Yes normoactive bowel sounds PALPATION: Yes Soft to palpation, No Tenderness to palpation present (GI), No Guarding due to palpation present (GI) and Yes No hepatosplenomegaly present Extremity: COMMON NORMALS: normal to inspection, capillary refill normal, no clubbing, cyanosis or edema, no calf tenderness and no pedal edema Neuro: SENSORIUM/ORIENTATION: Yes oriented to person, Yes oriented to place and Yes oriented to time Skin: COMMON NORMALS: no rashes or lesions noted GENERAL SKIN EXAM: no rashes or lesions noted Course Vital Signs: Vital signs: Vital Signs Temperature 98.3 F 07/29/24 07:43 Pulse Rate 47 L 07/29/24 11:00 Respiratory Rate 16 07/29/24 11:00 Blood Pressure 130/42 07/29/24 11:00 Pulse Oximetry 96 07/29/24 11:00 Oxygen Delivery Me thod Room Air 07/29/24 11:00 MDM - Syncope Medical Decision Making Patient significantly bradycardic with syncopal episodes discussed with hospitalist will admit likely need medication adjustments. Consult cardiology. Troponins trending negative. EKG shows atrial fibrillation with bradycardic response. Medical Records I reviewed the patient's medical records. Lab Data I reviewed the patient's lab results. 07/29/24 07:30 07/29/24 07:30 Radiology Impressions Chest X-Ray 07/29/24 07:58 Impression: Atherosclerosis. Head CT 07/29/24 07:58 Impression: Moderate cerebral atrophy. Laboratory Results WBC 10.46 10^3/uL (3.29-11.43) 07/29/24 07:30 RBC 3.85 10^6/uL (3.85-5.65) 07/29/24 07:30 Hgb 12.50 g/dL (11.27-16.99) 07/29/24 07:30 Hct 38.0 % (36-47) 07/29/24 07:30 MCV 98.7 fl (85-98) H 07/29/24 07:30 MCH 32.5 pg (27-33) 07/29/24 07:30 MCHC 32.9 g/dL (30-55) 07/29/24 07:30 RDW 13.4 % (12.1-15.1) 07/29/24 07:30 Plt Count 183 10^3/cmm (157-399) 07/29/24 07:30 MPV 11.0 fL (7.4-10.4) H 07/29/24 07:30 Neut % (Auto) 80.9 % 07/29/24 07:30 Lymph % (Auto) 11.1 % 07/29/24 07:30 [place] % (Auto) 6.3 % 07/29/24 07:30 Eos % (Auto) 0.8 % 07/29/24 07:30 Baso % (Auto) 0.4 % 07/29/24 07:30 Neut # (Auto) 8.47 10^3/uL (1.8-7.7) H 07/29/24 07:30 Lymph # (Auto) 1.2 10^3/uL (0.8-4.8) 07/29/24 07:30 [place] # (Auto) 0.7 10^3/uL (0.2-0.9) 07/29/24 07:30 Eos # (Auto) 0.1 10^3/uL (0.0-0.8) 07/29/24 07:30 Baso # (Auto) 0.0 10^3/uL (0.0-0.1) 07/29/24 07:30 Nucleated RBC % (auto) 0 % 07/29/24 07:30 Nucleated RBCs # 0.0 /100WBC 07/29/24 07:30 Sodium 139 mmol/L (136-145) 07/29/24 07:30 Potassium 4.3 mmol/L (3.5-5.1) 07/29/24 07:30 Chloride 98 mmol/L (98-107) 07/29/24 07:30 Carbon Dioxide 23 mmol/L (22-29) 07/29/24 07:30 Anion Gap 22.3 (5-19) H 07/29/24 07:30 BUN 62 mg/dL (8-23) H 07/29/24 07:30 Creatinine 1.9 mg/dL (0.5-0.9) H 07/29/24 07:30 GFR Calculation Not Reportable 07/29/24 07:30 Glucose 117 mg/dL (65-115) H 07/29/24 07:30 Calculated Osmolality 307 mOsm/kg (285-295) H 07/29/24 07:30 Calcium 9.5 mg/dL (8.5-10.5) 07/29/24 07:30 Magnesium 1.7 mg/dL (1.7-2.3) 07/29/24 07:30 Total Bilirubin 0.7 mg/dL (0.15-1.2) 07/29/24 07:30 AST 24 U/L (0-32) 07/29/24 07:30 ALT 29 U/L (0-33) 07/29/24 07:30 Alkaline Phosphatase 74 U/L (35-105) 07/29/24 07:30 Troponin T Baseline 52 ng/L (0-10) H 07/29/24 07:30 Troponin T 120 Minute 46.79 ng/L (0-10) H 07/29/24 09:16 Delta Troponin T -5.21 ABS# (0-10) L 07/29/24 09:16 Total Protein 6.1 g/dL (6.6-8.7) L 07/29/24 07:30 Albumin 4.4 g/dL (3.5-5.2) 07/29/24 07:30 Globulin 1.7 g/dL (1.3-4.6) 07/29/24 07:30 Urine Color Yellow (Yellow) 07/29/24 08:45 Urine Appearance Clear (CLEAR) 07/29/24 08:45 Urine pH 5.5 (5-7) 07/29/24 08:45 Ur Specific [place] 1.009 (1.005-1.030) 07/29/24 08:45 Urine Protein Negative (Negative) 07/29/24 08:45 Urine Glucose (UA) Negative (Normal) 07/29/24 08:45 Urine Ketones Negative (Negative) 07/29/24 08:45 Urine Blood Negative (Negative) 07/29/24 08:45 Urine Nitrate Negative (Negative) 07/29/24 08:45 Urine Bilirubin Negative (Negative) 07/29/24 08:45 Urine Urobilinogen 0.2 mg/dL (Negative) 07/29/24 08:45 Ur Leukocyte Esterase Negative (Negative) 07/29/24 08:45 Urine RBC 0-2 /hpf (0-2) 07/29/24 08:45 Urine WBC 0-5 /hpf (0-5) 07/29/24 08:45 Ur Squamous Epith Cells 0-5 /hpf (0-5) 07/29/24 08:45 Amorphous Sediment Not Reportable 07/29/24 08:45 Urine Bacteria None seen /hpf (NONE) 07/29/24 08:45 Hyaline Casts 1.21 /lpf 07/29/24 08:45 Coronavirus 229E (PCR) Not detected (NOT DETECT) 07/29/24 08:16 SARS-CoV-2 (PCR) Not detected (NOT DETECT) 07/29/24 08:16 All radiology interpretation(s) finalized by discharge Discharge Plan Discharge Patient Disposition: Placed in Observation Admit Provider: Evelio Fernando Clinical Impression: Near syncope, Atrial fibrillation, Bradycardia Condition: Stable Coding Level of Care Code ED Community Health Program Representative for Chg Fwd
[2024-07-29 08:09] LABS: Basophils % 0.4 %; Eosinophils # 0.1 10^3/uL (0.0-0.8); Eosinophils % 0.8 %; Lymphocytes # 1.2 10^3/uL (0.8-4.8); Lymphocytes % 11.1 %; Mean Corpuscular HGB Conc 32.9 g/dL (30-55); Mean Corpuscular Hemoglobin 32.5 pg (27-33); Mean Corpuscular Volume 98.7 fl (85-98); Monocytes # 0.7 10^3/uL (0.2-0.9); Monocytes % 6.3 %; Neutrophils # 8.47 10^3/uL (1.8-7.7); Neutrophils % 80.9 %; Nucleated Red Blood Cells % 0 %; Platelet Count 183 10^3/cmm (157-399); Red Blood Count 3.85 10^6/uL (3.85-5.65); Red Cell Distribution Width 13.4 % (12.1-15.1); White Blood Count 10.46 10^3/uL (3.29-11.43)
[2024-07-29 08:21] LABS: Troponin(5th) Baseline 52 ng/L (0-10)
[2024-07-29 08:22] LABS: Alanine Aminotransferase 29 U/L (0-33); Albumin Level 4.4 g/dL (3.5-5.2); Alkaline Phosphatase 74 U/L (35-105); Anion Gap 22.3 (5-19); Aspartate Amino Transferase 24 U/L (0-32); Blood Urea Nitrogen 62 mg/dL (8-23); Calcium 9.5 mg/dL (8.5-10.5); Carbon Dioxide 23 mmol/L (22-29); Chloride 98 mmol/L (98-107); Creatinine Clr Calc Pharmacy 25.3284; Globulin 1.7 g/dL (1.3-4.6); Glucose 117 mg/dL (65-115); Osmolality Calculated 307 mOsm/kg (285-295); Potassium 4.3 mmol/L (3.5-5.1); Sodium 139 mmol/L (136-145); Total Bilirubin 0.7 mg/dL (0.15-1.2); Total Protein 6.1 g/dL (6.6-8.7)
[2024-07-29 08:25] LABS: Magnesium 1.7 mg/dL (1.7-2.3)
[2024-07-29 08:50] LABS: Bilirubin Urine Negative (Negative); Blood Urine Negative (Negative); Glucose Urine UA Negative (Normal); Ketones Urine Negative (Negative); Leukocyte Esterase Urine Negative (Negative); Nitrate Urine Negative (Negative); Protein Urine Negative (Negative); Specific Gravity, Urine 1.009 (1.005-1.030); Urine Appearance Clear (CLEAR); Urine Color Yellow (Yellow); Urobilinogen Urine 0.2 mg/dL (Negative); pH Urine 5.5 (5-7)
[2024-07-29 08:53] LABS: Add Urine Microscopic? YES; Bacteria Urine None Seen /hpf; Hyaline Casts Urine 1.21 /lpf; RBC Urine 0-2 /hpf (0-2); Squamous Epithelial Cell Urine 0-5 /hpf (0-5); WBC Urine 0-5 /hpf (0-5)
--- NOTE | 2024-07-29 08:55 | PC.PHAR ---
Patient staes she takes an over the counter medcation for sleep in a blue bottle.Patient isn't sure of the name .
[2024-07-29 09:37] LABS: Troponin 5 2HR 46.79 ng/L (0-10)
[2024-07-29 09:53] LABS: Troponin 5 2HR Delta -5.21 ABS# (0-10)
[2024-07-29 10:24] LABS: Adenovirus Not Detected (NOT DETECT); Chlamydia Pneumoniae Not Detected (NOT DETECT); Coronavirus 229E,HKU1,NL63,OC4 Not Detected (NOT DETECT); Human Metapneumovirus Not Detected (NOT DETECT); Human Rhinovirus/Enterovirus Not Detected (NOT DETECT); Influenza A Not Detected (NOT DETECT); Influenza A H1 Not Detected (NOT DETECT); Influenza A H1-2009 Not Detected (NOT DETECT); Influenza A H3 Not Detected (NOT DETECT); Influenza B Not Detected (NOT DETECT); Mycoplasma Pneumoniae Not Detected (NOT DETECT); Parainfluenza Virus Type 1 Not Detected (NOT DETECT); Parainfluenza Virus Type 2 Not Detected (NOT DETECT); Parainfluenza Virus Type 3 Not Detected (NOT DETECT); Parainfluenza Virus Type 4 Not Detected (NOT DETECT); Respiratory Syncytial Virus A Not Detected (NOT DETECT); Respiratory Syncytial Virus B Not Detected (NOT DETECT); SARS-COV-2 Not Detected (NOT DETECT)
--- NOTE | 2024-07-29 10:40 | ECG_ITS ---
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 Measurements Intervals [place] Rate: 49 P: 0 [place]: 0 QRS: 47 QRSD: 120 T: -34 QT: 510 QTc: 462 Interpretive Statements ATRIAL FIBRILLATION WITH SLOW VENTRICULAR RESPONSE RIGHT BUNDLE BRANCH BLOCK [120+ ms QRS DURATION, UPRIGHT V1, 40+ ms S IN I/aVL/V4/V5/V6] MODERATE T-WAVE ABNORMALITY, CONSIDER LATERAL ISCHEMIA [-0.1+ mV T-WAVE IN I/aVL/V5/V6] MODERATE T-WAVE ABNORMALITY, CONSIDER INFERIOR ISCHEMIA [-0.1+ mV T-WAVE IN II/aVF] Compared to ECG 07/29/2024 08:13:05 No significant changes Electronically Signed On 07-29-2024 15:13:40 CAMP DINING ROOM ATTENDANT by Nba Tamez M.D. [email or web address]
--- NOTE | 2024-07-29 13:39 | PM.CONSULT ---
Documented by User: Edgar Winston MD 07/29/24 18:32 Providers/Reason For Consult Consulting Physician/Specialty*: SAMIRA Winston MD/cardiology Reason for Consult*: Patient with atrial fibrillation and slow ventricular response rate Requesting Physician: Dr. Fernando Attending Physician: Evelio Fernando MD Primary Care Provider: Andreas Tineo MD History of Present Illness History of Present Illness Ms. Lawson is a very pleasant 84-year-old female who came in to the ER today for syncopal episode. She states that she has had 3 of these episodes in the past 3 weeks. The first episode happened while he was in the kitchen with her walker, passed out briefly. The second episode was while she was on a recliner. The spells last for few seconds. she states that these episodes are not positional. She states she had about 12 PM last night she sat up in her bed and passed out. CT of the head was done to rule out any brain bleed. She has a history of chronic A-fib in which she is anticoagulated with Eliquis. Previous event monitor in November of this year showed overall average rate in the 60s with about 3 events in which she had 3-second pauses. The longest was 3.2 seconds. At that time patient was asymptomatic so current medication treatment was recommended with metoprolol 25 mg twice daily. Just recently did she start having the symptoms. She denies chest pain or increased shortness of breath. At the time of my evaluation she is stable heart rates in the 40s and asymptomatic. Previous echo was done over a year ago that showed patient had normal EF with moderate to severe tricuspid regurgitation. Previous stress test was negative for ischemia. Current EKG showed afib with slow ventricular response. Patient has no history of coronary artery disease, has a history of hypertension, tricuspid regurgitation, chronic edema, and chronic A-fib, obesity. She has been taking metoprolol 25 mg p.o. twice daily. The last dose was yesterday evening. Review of Systems Narrative: CONSTITUTIONAL: No fever or chills. EYES: No blurring of vision or other visual disturbances lately. ENT: No hoarseness of voice, auditory disturbances or sore throat. CARDIOVASCULAR: As mentioned above. RESPIRATORY: No significant cough. GASTROINTESTINAL: No hematemesis or melena. GENITOURINARY: No dysuria or hematuria. INTEGUMENTARY: No skin rashes or history of skin cancer. NEURO: No transient ischemic attacks or amaurosis. PSYCHIATRIC: No history of psychosis or major depression. HEMATOLOGIC: No bleeding disorders or significant anemia. ENDOCRINE: No history of polyuria or polydipsia. MUSCULOSKELETAL: No recent joint pain or swelling. ALLERGY/IMMUNOLOGY: As mentioned above. Medications/Allergies Home Medications Medication Instructions Recorded Confirmed Last Taken Type potassium chloride 20 mEq 40 meq (2 x 20 mEq) PO DAILY #90 05/27/24 07/29/24 07/28/24 Rx tablet,extended release tabs torsemide 20 mg tablet 40 mg (2 x 20 mg) PO BID #180 tabs 05/27/24 07/29/24 07/28/24 Rx escitalopram oxalate 20 mg tablet 20 mg PO QAM #90 tabs 07/07/24 07/29/24 07/28/24 Rx meloxicam 15 mg tablet 15 mg PO DAILY PRN shoulder pain 07/07/24 07/29/24 Unknown Rx #20 tabs acetaminophen 325 mg tablet 650 mg PO QID PRN pain or fever 07/29/24 07/29/24 07/28/24 History (Tylenol) apixaban 5 mg tablet (Eliquis) 5 mg PO BID 07/29/24 07/29/24 07/28/24 History metoprolol tartrate 25 mg tablet 25 mg PO BID 07/29/24 07/29/24 07/28/24 History valsartan 40 mg tablet 40 mg PO DAILY 07/29/24 07/29/24 07/28/24 History Allergies Allergy/AdvReac Type Severity Reaction Status Date / Time codeine AdvReac ADR-Itching Verified 07/07/24 08:43 desvenlafaxine [From Pristiq] AdvReac Unknown Verified 07/07/24 08:43 red meat Allergy Unknown Uncoded 07/07/24 08:43 PFSH Acute PFSH: Medical History (Updated 07/29/24 @ 18:30 by Edgar Winston MD) Atrial fibrillation Major depressive disorder, recurrent, in full remission Asthma, cough variant Polyneuropathy, unspecified Pulmonary HTN Apnea, sleep Bradycardia, unspecified Benign hypertension Surgical History History of total right knee replacement History of bilateral hip arthroplasty Family History Other Cancer Heart disease Social History Smoking and tobacco/nicotine status: never used tobacco/nicotine Alcohol intake: never Substance/Drug Use: never Lives independently: Yes Household members: none Housing: House Marital status: / Vitals/I&O/Wt Last Vital Signs Temp 98.3 F 07/29/24 07:43 Pulse 62 07/29/24 12:35 Resp 16 07/29/24 11:00 BP 142/80 07/29/24 12:35 Pulse Ox 98 07/29/24 12:35 O2 Del Method Room Air 07/29/24 11:00 Weight last 48 hrs Weight 220 lb Physical Exam Narrative: GENERAL: The patient is alert and oriented times three. Not in any acute distress. Obese HEENT: No significant pallor, icterus or lymphadenopathy.Oral cavity: There are no mucous membrane lesions. NECK: Trachea appears to be central. No masses noted. No JVD or thyromegaly appreciated. RESPIRATORY: Chest is symmetrical. No intercostals muscle retraction or any accessory muscle activation. There is no chest wall tenderness. Breath sounds are heard bilaterally. No rales or rhonchi heard. No evidence of any consolidation. BREASTS: Deferred. HEART: The heart sounds are normal. No S3 or S4. No significant murmurs. No pericardial rub ABDOMEN: No vessel pulsations or distention. No tenderness. No organomegaly appreciated. Bowel sounds are normally heard. : Deferred. RECTAL: Deferred. LYMPHATIC: No lymphadenopathy noted in the neck. EXTREMITIES: Trace edema with no cyanosis. No clubbing. MUSCULOSKELETAL: No acute joint deformities or swelling SKIN: There are no significant rashes or ecchymosis NEUROPSYCHIATRIC: The patient is alert and oriented x3. Appears to be in a good mood. No tremors or rigidity noted. Data 07/29/24 07:30 07/29/24 07:30 Other data: The EKG from today revealed sinus bradycardia rate of 30 bpm. Diffuse nonspecific T changes Myocardial perfusion imaging 05/04/2023 1. Normal myocardial perfusion imaging with no evidence of ischemia 2. LV systolic function is normal 3. TID ratio is elevated but in absence of significant perfusion abnormality, significance of this finding is equivocal. Echocardiogram on 05/01/2023 Normal left ventricular size and systolic function, EF 70%.mild left ventricular hypertrophy. No regional wall motion abnormalities. [id number] tricuspid valve regurgitation. Estimated pulmonary artery peak systolic pressure 45 mmHg Moderate biatrial enlargement. Mild mitral valve regurgitation. Thickened aortic valve. Trace pulmonary valve regurgitation. There is no pericardial effusion. There are no intracardiac masses. Compared to the study from 10/31/2017, there is significant worsening of the tricuspid regurgitation A&P Assessment and plan (1) Atrial fibrillation: Patient seems to have intermittent atrial fibrillation. Currently she is in sinus bradycardia. She is on long-term oral anticoagulation. Qualifiers: Atrial fibrillation type: unspecified Qualified Code(s): I48.91 - Unspecified atrial fibrillation (2) Essential hypertension: The blood pressure is mildly elevated. (3) Bradycardia: Most likely this patient has underlying sinus hilario dysfunction which is accentuated by the beta-maria r. I may hold off on the metoprolol at this time. She will be closely monitored on telemetry. (4) Syncope: Possibly in the sinus bradycardia/pauses. She apparently had pauses on the Holter monitor done in November. Will closely monitor on telemetry at this time. Heart rate at the time of my examination was in the 50s. Qualifiers: Syncope type: unspecified Qualified Code(s): R55 - Syncope and collapse Plan If the patient's heart rate recovers and stays in the normal range, we may hold off on any further intervention at this point. She may require a permanent pacemaker plantation sometime down the line. But at this point, there is no urgency. Patient in the clinical progress, further management decisions will be made. Consult Attestations Medical Necessity Statement: Patient requires continued hospital stay for close monitoring and further management Coding Level of Care Code 71637 Diagnoses Atrial fibrillation I48.91 Atrial fibrillation type: unspecified Essential hypertension I10 Bradycardia R00.1 Syncope, unspecified syncope type R55 Syncope type: unspecified Documented by User: Mabel Brown, EVENTS TRAFFIC CONTROLLER 07/29/24 15:11 History of Present Illness History of Present Illness Ms. Lawson is a very pleasant 84-year-old female who came in to the ER today for syncopal episode. She states that she has had 3 of these episodes in the past 3 weeks. She states that these episodes are not positional. She states she had about 12 PM last night she sat up in her bed and passed out. CT of the head was done to rule out any brain bleed. She has a history of chronic A-fib in which she is anticoagulated with Eliquis. Previous event monitor in November of this year showed overall average rate in the 60s with about 3 events in which she had 3-second pauses. The longest was 3.2 seconds. At that time patient was asymptomatic so current medication treatment was recommended with metoprolol 25 mg twice daily. Just recently did she start having the symptoms. She denies chest pain or increased shortness of breath. At the time of my evaluation she is stable heart rates in the 40s and asymptomatic. Previous echo was done over a year ago that showed patient had normal EF with moderate to severe tricuspid regurgitation. Previous stress test was negative for ischemia. Current EKG showed afib with slow ventricular response. Patient has no history of coronary artery disease, has a history of hypertension, tricuspid regurgitation, chronic edema, and chronic A-fib, obesity. Medications/Allergies Home Medications Medication Instructions Recorded Confirmed Last Taken Type potassium chloride 20 mEq 40 meq (2 x 20 mEq) PO DAILY #90 05/27/24 07/29/24 07/28/24 Rx tablet,extended release tabs torsemide 20 mg tablet 40 mg (2 x 20 mg) PO BID #180 tabs 05/27/24 07/29/24 07/28/24 Rx escitalopram oxalate 20 mg tablet 20 mg PO QAM #90 tabs 07/07/24 07/29/24 07/28/24 Rx meloxicam 15 mg tablet 15 mg PO DAILY PRN shoulder pain 07/07/24 07/29/24 Unknown Rx #20 tabs acetaminophen 325 mg tablet 650 mg PO QID PRN pain or fever 07/29/24 07/29/24 07/28/24 History (Tylenol) apixaban 5 mg tablet (Eliquis) 5 mg PO BID 07/29/24 07/29/2424 History metoprolol tartrate 25 mg tablet 25 mg PO BID 07/29/24 07/29/24 07/28/24 History valsartan 40 mg tablet 40 mg PO DAILY 07/29/24 07/29/24 07/28/24 History Allergies Allergy/AdvReac Type Severity Reaction Status Date / Time codeine AdvReac ADR-Itching Verified 07/07/24 08:43 desvenlafaxine [From Pristiq] AdvReac Unknown Verified 07/07/24 08:43 red meat Allergy Unknown Uncoded 07/07/24 08:43 PFSH Acute PFSH: Medical History (Updated 07/29/24 @ 18:30 by Edgar Winston MD) Atrial fibrillation Major depressive disorder, recurrent, in full remission Asthma, cough variant Polyneuropathy, unspecified Pulmonary HTN Apnea, sleep Bradycardia, unspecified Benign hypertension Surgical History History of total right knee replacement History of bilateral hip arthroplasty Family History Other Cancer Heart disease Social History Smoking and tobacco/nicotine status: never used tobacco/nicotine Alcohol intake: never Substance/Drug Use: never Lives independently: Yes Household members: none Housing: House Marital status: / Data 07/29/24 07:30 07/29/24 07:30 A&P Assessment and plan (1) Atrial fibrillation: Qualifiers: Atrial fibrillation type: unspecified Qualified Code(s): I48.91 - Unspecified atrial fibrillation (2) Essential hypertension: (3) Bradycardia: (4) Syncope: Qualifiers: Syncope type: unspecified Qualified Code(s): R55 - Syncope and collapse Coding Level of Care Code 03632 Diagnoses Atrial fibrillation I48.91 Atrial fibrillation type: unspecified Essential hypertension I10 Bradycardia R00.1 Syncope, unspecified syncope type R55 Syncope type: unspecified
--- NOTE | 2024-07-29 13:57 | USCV_ITS ---
Milana Galvan Age: 84 Gender: F : 1940 Exam Date: 07/29/2024 14:34 Ordering Phys: Mabel Mendoza NP Technologist: Exam Location: [facility] [place] Indication: cp sob BP: 130 / 70 HR: 98 Rhythm: Sinus Technical Quality: Adequate MEASUREMENTS (Male / Female) Normal Values 2D ECHO LV Diastolic Diameter PLAX 4.6 cm 4.2 - 5.9 / 3.9 - 5.3 cm IVS Diastolic Thickness 1.3 cm 0.6 - 1.0 / 0.6 - 0.9 cm IVS Systolic Thickness 1.8 cm LVPW Diastolic Thickness 1.6 cm 0.6 - 1.0 / 0.6 - 0.9 cm LVPW Systolic Thickness 2.1 cm LVOT Diameter 2.0 cm LV Ejection Fraction 2D Teich 64.8 % LV Ejection Fraction MOD 4C 50.9 % LV Ejection Fraction MOD 2C 55.8 % LV Ejection Fraction 2C AL 55.2 % LA Diameter 5.0 cm RA Systolic Volume 4C AL 103.8 ml RA Systolic Volume 4C MOD 102.3 ml LA Sys Volume AL 76.0 cm cubed LA Sys Volume Index AL 34.2 cm cubed/m squared Aorta at Sinotubular Diameter 3.2 cm M-MODE LA Ao Ratio MM 1.7 AV Cusp Separation MM 2.3 cm DOPPLER AV Peak Velocity 155.3 cm/s AV Area Cont Eq vti 2.7 cm squared AV Area Cont Eq pk 2.2 cm squared MV Peak Velocity 124.0 cm/s MV Area PHT 4.5 cm squared Mitral E to A Ratio 2.6 TV Peak Velocity 348.0 cm/s TR Peak Velocity 367.0 cm/s TR Peak Gradient 53.9 mmHg TV Peak E Velocity 139.0 cm/s PV Peak Velocity 91.0 cm/s FINDINGS Left Ventricle .Normal left ventricular size and systolic function, EF 55%. Right Ventricle The right ventricle is normal in size and function. Right Atrium Moderately increased right atrial size. Left Atrium Mildly increased left atrial size. Mitral Valve No gross abnormalities noted Aortic Valve No gross abnormalities noted Tricuspid Valve Severe tricuspid valve regurgitation. Estimated pulmonary artery peak systolic pressure 57 mmHg Pulmonic Valve Trace pulmonary valve regurgitation. Pericardium Normal pericardium without effusion. Aorta Normal ascending aorta dimension. IVC Inferior vena cava not visualized. CONCLUSIONS .Normal left ventricular size and systolic function, EF 55%. Moderately increased right atrial size. Mildly increased left atrial size. Severe tricuspid valve regurgitation. Estimated pulmonary artery peak systolic pressure 57 mmHg. Trace pulmonary valve regurgitation. There is no pericardial effusion. There are no intracardiac masses. Compared to the study from 05/01/2023, there is some worsening of the pulmonary hypertension Dr Edgar Winstno MD FAC (Electronically Signed) Final Date: 29 July 2024 23:37 S
--- NOTE | 2024-07-29 13:58 | ECG_ITS ---
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 Measurements Intervals Flora Rate: 39 P: 0 TN: 0 QRS: 42 QRSD: 135 T: 236 QT: 495 QTc: 403 Interpretive Statements ATRIAL FIBRILLATION WITH SLOW VENTRICULAR RESPONSE RIGHT BUNDLE BRANCH BLOCK [120+ ms QRS DURATION, UPRIGHT V1, 40+ ms S IN I/aVL/V4/V5/V6] MODERATE T-WAVE ABNORMALITY, CONSIDER LATERAL ISCHEMIA [-0.1+ mV T-WAVE IN I/aVL/V5/V6] MODERATE T-WAVE ABNORMALITY, CONSIDER INFERIOR ISCHEMIA [-0.1+ mV T-WAVE IN II/aVF] CRITICAL TEST RESULT Compared to ECG 05/16/2023 12:45:01 No significant changes Electronically Signed On 07-29-2024 15:14:26 CHEESE CUTTER by Nba Tamez M.D. [email or web address]
--- NOTE | 2024-07-29 14:23 | P.HP_ITS ---
Providers/Chief Complaint 2 Admitting Physician: Evelio Fernando MD Primary Care Provider: Andreas Tineo MD Chief Complaint: Fall, Syncope History of Present Illness Milana Galvan is a 84 year old female presenting to the emergency department after syncopal episode. She states she was sitting, when she passed out. She believes it was around midnight last night. She is not for sure how long she was out. She has had at least 3 of these episodes in the last 2 or 3 weeks. She can be sitting, or standing. She sometimes feels a little bit of sweating, and nausea. She feels dizzy at times. No chest pain, or shortness of breath. No medication changes. She has been on metoprolol for quite some time, but no changes in dose. History of Holter monitor in December, with some occasional pauses. No recent illness, fever, abdominal pain. Last metoprolol dose last night around 8 PM. Review of Systems 2 General: Reports: 10 or more systems reviewed and unremarkable except in HPI and below Medications/Allergies Home Medications Medication Instructions Recorded Confirmed Last Taken Type potassium chloride 20 mEq 40 meq (2 x 20 mEq) PO DAILY #90 05/27/24 07/29/24 07/28/24 Rx tablet,extended release tabs torsemide 20 mg tablet 40 mg (2 x 20 mg) PO BID #180 tabs 05/27/24 07/29/24 07/28/24 Rx escitalopram oxalate 20 mg tablet 20 mg PO QAM #90 tabs 07/07/24 07/29/24 07/28/24 Rx meloxicam 15 mg tablet 15 mg PO DAILY PRN shoulder pain 07/07/24 07/29/24 Unknown Rx #20 tabs acetaminophen 325 mg tablet 650 mg PO QID PRN pain or fever 07/29/24 07/29/24 07/28/24 History (Tylenol) apixaban 5 mg tablet (Eliquis) 5 mg PO BID 07/29/24 07/29/24 07/28/24 History metoprolol tartrate 25 mg tablet 25 mg PO BID 07/29/24 07/29/24 07/28/24 History valsartan 40 mg tablet 40 mg PO DAILY 07/29/24 07/29/24 07/28/24 History Allergies Allergy/AdvReac Type Severity Reaction Status Date / Time codeine AdvReac ADR-Itching Verified 07/07/24 08:43 desvenlafaxine [From Pristiq] AdvReac Unknown Verified 07/07/24 08:43 red meat Allergy Unknown Uncoded 07/07/24 08:43 PFSH Acute 2 PFSH: Medical History (Updated 07/29/24 @ 14:26 by Evelio Fernando MD) Atrial fibrillation Major depressive disorder, recurrent, in full remission Asthma, cough variant Polyneuropathy, unspecified Pulmonary HTN Apnea, sleep Bradycardia, unspecified Benign hypertension Surgical History History of total right knee replacement History of bilateral hip arthroplasty Family History (Reviewed 07/29/24 @ 14: by Evelio Fernando MD) Other Cancer Heart disease Social History (Reviewed 07/29/24 @ 14: by Evelio Fernando MD) Smoking and tobacco/nicotine status: never used tobacco/nicotine Alcohol intake: never Substance/Drug Use: never Lives independently: Yes Household members: none Housing: House Marital status: / Vitals/I&O/Wt Last Vital Signs Temp 98.3 F 07/29/24 07:43 Pulse 62 07/29/24 12:35 Resp 16 07/29/24 11:00 BP 142/80 07/29/24 12:35 Pulse Ox 98 07/29/24 12:35 O2 Del Method Room Air 07/29/24 11:00 Weight last 48 hrs Weight 99.79 kg Physical Exam 2 Narrative: General Exam is a white female, no apparent distress, reporting no dizziness now. Heart rate at bedside is approximately 45, irregular HEENT: Atraumatic normocephalic. Oropharynx clear. Neck is supple Cardiovascular irregular, irregular with bradycardic rate. No obvious murmur Lungs clear no wheezing or crackles Abdomen is soft nontender positive bowel sounds. No obvious organomegaly exam is deferred Extremities no cyanosis clubbing or edema, cap refill brisk Skin no rash Neuro no obvious focal deficits Data 07/29/24 07:30 07/29/24 07:30 Other Labs: Magnesium is normal LFTs are normal Troponin 52 with repeat of 46 I have ordered a TSH Calcium and albumin are normal Urinalysis negative Coronavirus PCR negative Head CT which I reviewed no acute changes Chest x-ray which I reviewed some atherosclerosis but no infiltrate. Right hemidiaphragm elevation some cardiomegaly EKG in the ER demonstrated atrial fibrillation, with slow rate, right bundle branch block, rate around 40. Nonspecific ST-T wave changes A&P Assessment and plan (1) Syncope: Patient with at least 3 episodes of syncope in the last month This is highly likely to be related to bradycardia, and she has previous pauses on her Holter. Discontinue her metoprolol Monitor on telemetry Cardiology consult Echo Check TSH Electrolytes and magnesium have already been checked and normal Could consider orthostatic blood pressures when her bradycardia resolves Small fluid bolus (2) Bradycardia: Significant bradycardia with history of pauses Discontinue metoprolol as above See other notations above (3) Atrial fibrillation: Hold her Eliquis in case procedure is needed Convert to Lovenox Qualifiers: Atrial fibrillation type: unspecified Qualified Code(s): I48.91 - Unspecified atrial fibrillation Plan Acute kidney injury. Small fluid bolus, recheck BMP tomorrow. Other medical problems as outlined in past medical history Partial code. She really does not want CPR or to be on a mechanical ventilator with cardioversion, other treatment such as pacemaker is allowed. Discussed in detail with nursing, family, patient. Lovenox will suffice for DVT prophylaxis Attestations 2 Medical Necessity Statement*: Will require less than 2 midnight stay for evaluation and treatment of syncope and bradycardia Diagnoses Syncope R55 Bradycardia R00.1 Atrial fibrillation I48.91 Atrial fibrillation type: unspecified Time Spent (min) 64
--- NOTE | 2024-07-29 14:25 | PC.NURSE ---
received in to room 112-2 from er via stretcher at 1250.report received.pt is alert and awake and oriented x 4.no dizziness at this time.afib at slow rate on monitor.(40's).pt oriented to room environment.instructed to contact staff for any pain,dizziness..or for any concern at all.pt verb understanding of instructions.
[2024-07-29] MEDS: sodium chloride 0.9% 250 ML IV (15:03)
[2024-07-29 15:15] LABS: Thyroid Stimulating Hormone 4.57 uIU/mL (0.27-4.20)
[2024-07-29] MEDS: acetaminophen 325 mg Tablet 650 MG PO ×2 (16:07→21:12)
[2024-07-29] MEDS: enoxaparin 100 mg/mL Syringe SUBCUT (20:57)
[2024-07-29 21:23] LABS: Troponin 5 6HR 49.75 ng/L (0-10)
[2024-07-29 21:29] LABS: Troponin 5 6HR Delta -2.25 ng/L (0-12)
[2024-07-30] VITALS (8 sets, daily range): BP systolic 111–163; BP diastolic 40–79; PULSE 66–77; RESP 18–28; TEMP 36.5–37.1; O2SAT 92–99
[2024-07-30 04:15] LABS: Basophils % 0.4 %; Eosinophils # 0.2 10^3/uL (0.0-0.8); Eosinophils % 2.9 %; Hematocrit 35.5 % (36-47); Lymphocytes # 1.6 10^3/uL (0.8-4.8); Lymphocytes % 20.7 %; Mean Corpuscular HGB Conc 32.4 g/dL (30-55); Mean Corpuscular Hemoglobin 32.2 pg (27-33); Mean Corpuscular Volume 99.4 fl (85-98); Mean Platelet Volume 10.7 fL (7.4-10.4); Monocytes # 0.5 10^3/uL (0.2-0.9); Monocytes % 7.1 %; Neutrophils % 68.6 %; Nucleated Red Blood Cells % 0 %; Platelet Count 147 10^3/cmm (157-399); Red Blood Count 3.57 10^6/uL (3.85-5.65); Red Cell Distribution Width 13.1 % (12.1-15.1); White Blood Count 7.58 10^3/uL (3.29-11.43)
[2024-07-30 04:33] LABS: Anion Gap 15.8 (5-19); Blood Urea Nitrogen 62 mg/dL (8-23); Calcium 9.4 mg/dL (8.5-10.5); Carbon Dioxide 27 mmol/L (22-29); Chloride 104 mmol/L (98-107); Creatinine Clr Calc Pharmacy 33.7109; Glucose 103 mg/dL (65-115); Magnesium 1.8 mg/dL (1.7-2.3); Osmolality Calculated 314 mOsm/kg (285-295); Potassium 3.8 mmol/L (3.5-5.1); Sodium 143 mmol/L (136-145)
[2024-07-30] MEDS: escitalopram 10 mg Tablet 20 MG PO (06:40)
[2024-07-30] MEDS: enoxaparin 100 mg/mL Syringe SUBCUT ×2 (08:28→21:14)
[2024-07-30] MEDS: losartan 50 mg Tablet 25 MG PO ×2 (08:28→14:16)
[2024-07-30 09:01] LABS: NT Pro B Type Natriuretic Pept 2912 pg/mL (0-450)
--- NOTE | 2024-07-30 10:37 | PC.CHAP ---
Pastoral Care Encounter/Spiritual Assessment Type of Contact [] Declined it recruiter visit [] Patient/Family/Request visit [] Outpatient visit [] Follow-up visit [] Physician referral [] Code/Alert [] Routine visit [] Staff referral [] Actively dying [] Patient sleeping [] Family support [] [] Out of room [] Palliative care [] [x] Receiving care in room [] Pre-surgical visit [] Trauma [] Long length of stay [] ICU visit [] Other: Relational/Emotional Strength [] Patient feels connected with others/family/visitors/staff [] Distress [] Loneliness/isolation [] Abandonment Spirituality of Patient [] Person of Yvonne [] Attends Cheondoism of their Yvonne [] Believes in Prayer [] Reads Bible or Orthodoxy materials [] There are Spiritual issues to be addressed Evaluation Specialist Interventions [] Prayer [] Active listening [] Non-anxious presence [] Spiritual/emotional support [] Crisis/trauma care [] Spiritual counseling [] Bereavement support [] Provided bereavement packet [] Provided Bible/devotional materials [] Provided toy/stuffed animal, coloring book to patient or family member [] Provided Communion [] Anointing/[place] [] Salvation [] Completed spiritual assessment [] Other: Impact on Illness or Injury [] Angry [] Fearful [] Anxious [] Often cries [] Exhaustion [] Unable to work [] Unable to attend islam [] Unable to walk/stand [] Unable to read [] Unable to drive [] Unable to eat/drink [] Unable to sleep [] Unable to be with family [] Patient intubated [] Other: Summary Time spent with patient
--- NOTE | 2024-07-30 11:09 | P.PN_ITS ---
Subjective 2 Subjective: No complaints. Not dizzy any longer. Feeling much better. Heart rate has come up appropriately, 70s A-fib. Medications: Reviewed: Yes Vitals/I&O/Wt Last Vital Signs Temp 97.8 F 07/30/24 08:00 Pulse 73 07/30/24 08:00 Resp 28 H 07/30/24 08:00 BP 145/75 07/30/24 08:00 Pulse Ox 97 07/30/24 08:00 O2 Del Method Room Air 07/30/24 08:00 07/29/24 07/30/24 07/30/24 22:59 06:59 14:59 Intake Total 660 / 660 120 / 780 120 / 120 Output Total 300 / 300 Balance 660 / 660 -180 / 480 120 / 120 Weight last 48 hrs Weight 105.279 kg Weight 105.744 kg Weight 99.79 kg Physical Exam 2 Narrative: General Exam no distress Neck is supple Cardiovascular irregular, irregular with controlled rate Lungs clear no wheezing or crackles Abdomen is soft nontender positive bowel sounds. No obvious organomegaly Extremities no cyanosis clubbing or edema, cap refill brisk Data 07/30/24 03:55 07/30/24 03:55 A&P Assessment and plan (1) Syncope: Patient with at least 3 episodes of syncope in the last month This is highly likely to be related to bradycardia, and she has previous pauses on her Holter. Heart rate has improved after metoprolol discontinued Monitor on telemetry Cardiology consult appreciated. They wish to monitor the patient further over the next 24 hours Echo demonstrates preserved EF, pulmonary artery pressure 57, severe tricuspid regurg. TSH mildly elevated. Can be checked again as an outpatient. Electrolytes and magnesium have already been checked and normal Qualifiers: Syncope type: unspecified Qualified Code(s): R55 - Syncope and collapse (2) Bradycardia: Significant bradycardia with history of pauses Discontinue metoprolol as above See other notations above (3) Atrial fibrillation: Hold her Eliquis in case procedure is needed Converted to Lovenox Plan on resuming Eliquis on discharge Qualifiers: Atrial fibrillation type: unspecified Qualified Code(s): I48.91 - Unspecified atrial fibrillation Plan Acute kidney injury. Improving after fluid bolus, correction of bradycardia Other medical problems as outlined in past medical history Partial code. She really does not want CPR or to be on a mechanical ventilator with cardioversion, other treatment such as pacemaker is allowed. Discussed in detail with nursing, family, patient. Lovenox will suffice for DVT prophylaxis Attestations 2 Medical Necessity Statement*: Needs continued observation in regards to bradycardia, heart rate per cardiology. Likely discharge tomorrow. Coding Level of Care Code Acute Code for Chg Fwd Diagnoses Syncope, unspecified syncope type R55 Syncope type: unspecified Bradycardia R00.1 Atrial fibrillation I48.91 Atrial fibrillation type: unspecified
--- NOTE | 2024-07-30 16:39 | PC.NURSE ---
at approx 1500,pt had an 8 second pause noted on monitor.when rn arrived to room,pt was awake and alert.stated...i had one of those spells again,didnt i? pt states she felt dizzy,seems like a black cloud came in front of my eyes.denies sob or cp.bp 147/69.hr now 80.afib. dr swann and dr layne notified.no new orders at this time.will continue to observe closely.
--- NOTE | 2024-07-30 18:41 | P.PN_ITS ---
Subjective 2 Subjective: The patient's heart rate improved. It was staying in the 70s and 80s today. She had a prolonged pause of 8.2 seconds this afternoon. She got dizzy and lightheaded. [place] very weak afterwards. Her symptoms are similar to what she had at home. No chest pain or unusual shortness of breath. Medications: Medication Review Details: Current Medications Acetaminophen (Acetaminophen 325 Mg Tablet) 650 mg PO Q6H PRN PRN Reason: Mild/Mod Pain Or Temp >/= 101 Last Admin: 07/29/24 21:12 Dose: 650 mg Enoxaparin Sodium (Enoxaparin 100 Mg/Ml Syringe) 100 mg 1 mg/kg (100 mg) SUBCUT Q12H [facility] Last Admin: 07/30/24 08:28 Dose: 100 mg Escitalopram Oxalate (Escitalopram 10 Mg Tablet) 20 mg PO QAM [facility] Last Admin: 07/30/24 06:40 Dose: 20 mg Losartan Potassium (Losartan 50 Mg Tablet) 50 mg PO DAILY [facility] Ondansetron HCl (Ondansetron 2 Mg/Ml Sdv 2 Ml) 4 mg IVP Q6H PRN PRN Reason: vomiting, or N/V if npo Vitals/I&O/Wt Last Vital Signs Temp 98.0 F 07/30/24 12:00 Pulse 72 07/30/24 12:00 Resp 20 H 07/30/24 12:00 BP 149/79 07/30/24 14:16 Pulse Ox 92 07/30/24 12:00 O2 Del Method Room Air 07/30/24 12:00 07/30/24 07/30/24 07/30/24 06:59 14:59 22:59 Intake Total 120 / 780 360 / 360 Output Total 300 / 300 Balance -180 / 480 360 / 360 Weight last 48 hrs Weight 232 lb 1.6 oz Weight 233 lb 2 oz Weight 220 lb Physical Exam 2 Narrative: GENERAL: The patient is alert and oriented times three. Not in any acute distress. Obese HEENT: No significant pallor, icterus or lymphadenopathy.Oral cavity: There are no mucous membrane lesions. NECK: Trachea appears to be central. No masses noted. No JVD or thyromegaly appreciated. RESPIRATORY: Chest is symmetrical. No intercostals muscle retraction or any accessory muscle activation. There is no chest wall tenderness. Breath sounds are heard bilaterally. No rales or rhonchi heard. No evidence of any consolidation. BREASTS: Deferred. HEART: The heart sounds are normal. No S3 or S4. No significant murmurs. No pericardial rub ABDOMEN: No vessel pulsations or distention. No tenderness. No organomegaly appreciated. Bowel sounds are normally heard. : Deferred. RECTAL: Deferred. LYMPHATIC: No lymphadenopathy noted in the neck. EXTREMITIES: Trace edema with no cyanosis. No clubbing. MUSCULOSKELETAL: No acute joint deformities or swelling SKIN: There are no significant rashes or ecchymosis NEUROPSYCHIATRIC: The patient is alert and oriented x3. Appears to be in a good mood. No tremors or rigidity noted. Data 07/30/24 03:55 07/30/24 03:55 Other Labs: Laboratory Last Values WBC 7.58 10^3/uL (3.29-11.43) 07/30/24 03:55 RBC 3.57 10^6/uL (3.85-5.65) L 07/30/24 03:55 Hgb 11.50 g/dL (11.27-16.99) 07/30/24 03:55 Hct 35.5 % (36-47) L 07/30/24 03:55 MCV 99.4 fl (85-98) H 07/30/24 03:55 MCH 32.2 pg (27-33) 07/30/24 03:55 MCHC 32.4 g/dL (30-55) 07/30/24 03:55 RDW 13.1 % (12.1-15.1) 07/30/24 03:55 Plt Count 147 10^3/cmm (157-399) L 07/30/24 03:55 MPV 10.7 fL (7.4-10.4) H 07/30/24 03:55 Neut % (Auto) 68.6 % 07/30/24 03:55 Lymph % (Auto) 20.7 % 07/30/24 03:55 [place] % (Auto) 7.1 % 07/30/24 03:55 Eos % (Auto) 2.9 % 07/30/24 03:55 Baso % (Auto) 0.4 % 07/30/24 03:55 Neut # (Auto) 5.20 10^3/uL (1.8-7.7) 07/30/24 03:55 Lymph # (Auto) 1.6 10^3/uL (0.8-4.8) 07/30/24 03:55 [place] # (Auto) 0.5 10^3/uL (0.2-0.9) 07/30/24 03:55 Eos # (Auto) 0.2 10^3/uL (0.0-0.8) 07/30/24 03:55 Baso # (Auto) 0.0 10^3/uL (0.0-0.1) 07/30/24 03:55 Nucleated RBC % (auto) 0 % 07/30/24 03:55 Nucleated RBCs # 0.0 /100WBC 07/30/24 03:55 Sodium 143 mmol/L (136-145) 07/30/24 03:55 Potassium 3.8 mmol/L (3.5-5.1) 07/30/24 03:55 Chloride 104 mmol/L (98-107) 07/30/24 03:55 Carbon Dioxide 27 mmol/L (22-29) 07/30/24 03:55 Anion Gap 15.8 (5-19) 07/30/24 03:55 BUN 62 mg/dL (8-23) H 07/30/24 03:55 Creatinine 1.5 mg/dL (0.5-0.9) H 07/30/24 03:55 GFR Calculation Not Reportable 07/30/24 03:55 Glucose 103 mg/dL (65-115) 07/30/24 03:55 Calculated Osmolality 314 mOsm/kg (285-295) H 07/30/24 03:55 Calcium 9.4 mg/dL (8.5-10.5) 07/30/24 03:55 Magnesium 1.8 mg/dL (1.7-2.3) 07/30/24 03:55 Total Bilirubin 0.7 mg/dL (0.15-1.2) 07/29/24 07:30 AST 24 U/L (0-32) 07/29/24 07:30 ALT 29 U/L (0-33) 07/29/24 07:30 Alkaline Phosphatase 74 U/L (35-105) 07/29/24 07:30 Troponin T Baseline 52 ng/L (0-10) H 07/29/24 07:30 Troponin T 120 Minute 46.79 ng/L (0-10) H 07/29/24 09:16 Delta Troponin T -5.21 ABS# (0-10) L 07/29/24 09:16 Troponin T Hi Sens 6Hr 49.75 ng/L (0-10) H 07/29/24 20:55 Troponin T Hi Sens 6Hr Delta -2.25 ng/L (0-12) L 07/29/24 20:55 NT-Pro-B Natriuret Pep 2912 pg/mL (0-450) H 07/30/24 03:55 Total Protein 6.1 g/dL (6.6-8.7) L 07/29/24 07:30 Albumin 4.4 g/dL (3.5-5.2) 07/29/24 07:30 Globulin 1.7 g/dL (1.3-4.6) 07/29/24 07:30 TSH 4.57 uIU/mL (0.27-4.20) H 07/29/24 07:30 Urine Color Yellow (Yellow) 07/29/24 08:45 Urine Appearance Clear (CLEAR) 07/29/24 08:45 Urine pH 5.5 (5-7) 07/29/24 08:45 Ur Specific [place] 1.009 (1.005-1.030) 07/29/24 08:45 Urine Protein Negative (Negative) 07/29/24 08:45 Urine Glucose (UA) Negative (Normal) 07/29/24 08:45 Urine Ketones Negative (Negative) 07/29/24 08:45 Urine Blood Negative (Negative) 07/29/24 08:45 Urine Nitrate Negative (Negative) 07/29/24 08:45 Urine Bilirubin Negative (Negative) 07/29/24 08:45 Urine Urobilinogen 0.2 mg/dL (Negative) 07/29/24 08:45 Ur Leukocyte Esterase Negative (Negative) 07/29/24 08:45 Urine RBC 0-2 /hpf (0-2) 07/29/24 08:45 Urine WBC 0-5 /hpf (0-5) 07/29/24 08:45 Ur Squamous Epith Cells 0-5 /hpf (0-5) 07/29/24 08:45 Amorphous Sediment Not Reportable 07/29/24 08:45 Urine Bacteria None seen /hpf (NONE) 07/29/24 08:45 Hyaline Casts 1.21 /lpf 07/29/24 08:45 Coronavirus 229E (PCR) Not detected (NOT DETECT) 07/29/24 08:16 SARS-CoV-2 (PCR) Not detected (NOT DETECT) 07/29/24 08:16 A&P Assessment and plan (1) Bradycardia: This patient has been off of the beta-maria r for almost 36 hours.. Her prolonged pause of more than 8 seconds is suggestive of sinus node dysfunction. For further management of her condition, she requires a permanent pacemaker [place]. This was discussed with the patient and her daughter in detail which he understood well and consented to proceed. (2) Atrial fibrillation: Patient seems to have intermittent atrial fibrillation. Currently she is in normal sinus rhythm. Qualifiers: Atrial fibrillation type: unspecified Qualified Code(s): I48.91 - Unspecified atrial fibrillation (3) Essential hypertension: The blood pressure is fairly under control. (4) Syncope: Most likely related to the sinus pauses/bradycardia Qualifiers: Syncope type: unspecified Qualified Code(s): R55 - Syncope and collapse Plan Discussed with Dr. Fernando. I contacted Dr. Padilla at the [facility], to consider permanent pacer implantation for this patient. Dr. Mcnair accepted her transfer for further management. We will make arrangements for her to be transferred to the [facility] Attestations 2 Medical Necessity Statement*: Patient requires continued hospital stay for close monitoring Coding Level of Care Code 98783 Diagnoses Bradycardia R00.1 Atrial fibrillation I48.91 Atrial fibrillation type: unspecified Essential hypertension I10 Syncope, unspecified syncope type R55 Syncope type: unspecified
[2024-07-31] VITALS: BP 145/59; PULSE 81; RESP 22; TEMP 36.5; O2SAT 98
[2024-07-31] MEDS: acetaminophen 325 mg Tablet 650 MG PO (02:01)
[2024-07-31 04:00] VITALS: BP 155/74; PULSE 71; RESP 23; TEMP 36.6; O2SAT 95
[2024-07-31] MEDS: escitalopram 10 mg Tablet 20 MG PO (05:49)
--- NOTE | 2024-07-31 07:57 | P.TS_ITS ---
Transfer Summary Providers Date of Admission: 07/29/24 11:17 Date of Discharge/Transfer: 07/31/24 Attending Provider at Admission: Evelio Fernando MD Attending Provider at Transfer: Evelio Fernando MD Primary Care Provider: Andreas Tineo MD Transfer Plans: Anticipated date of transfer: 07/31/24 . Diagnoses at Discharge Discharge Diagnosis (1) Bradycardia: Status: Acute (2) Atrial fibrillation: Status: Acute Qualifiers: Atrial fibrillation type: unspecified Qualified Code(s): I48.91 - Unspecified atrial fibrillation (3) Essential hypertension: Status: Acute (4) Syncope: Status: Acute Qualifiers: Syncope type: unspecified Qualified Code(s): R55 - Syncope and collapse Reason for Visit Reason for Visit Fall, Syncope Hospital Course Hospital Course Patient presented to the hospital with syncopal episode. She had been on metoprolol 25 mg twice daily. This was discontinued, and heart rate drifted up to around 70. However, greater than 36 hours after the metoprolol was discontinued she had an 8-second pause. Cardiology recommended pacemaker, and transfer was arranged to [facility], under the care of Dr. Padilla. Patient agreed to the transfer. Her Eliquis she had been on at admission had been transition to [facility], and she had not received any Eliquis while inpatient at [facility]. Echocardiogram was done while inpatient, EF 55%, severe tricuspid regurg and pulmonary artery pressure of 57 Physical Exam Narrative: General Exam no distress Neck is supple Cardiovascular irregular, irregular rhythm with controlled rate Lungs clear Abdomen soft Extremities no cyanosis clubbing edema TS Data Studies Completed and Pending Pending at discharge Category Date Time Status BMP [Basic Metabolic Panel] Routine Lab 07/31/24 07:38 Ordered CBC Auto Diff [Complete Blood Count w/Auto] Routine Lab 07/31/24 07:38 Ordered Completed Studies During Hospitalization Category Date Time Status CT head wo con* [id number] Stat Cat Scan 07/29/24 07:58 Completed XR chest 1V portable [id number] Stat Exams 07/29/24 07:58 Completed CV. echo complete* [id number] Routine Ultrasound 07/29/24 13:57 Completed Laboratory Last Values WBC 7.58 10^3/uL (3.29-11.43) 07/30/24 03:55 RBC 3.57 10^6/uL (3.85-5.65) L 07/30/24 03:55 Hgb 11.50 g/dL (11.27-16.99) 07/30/24 03:55 Hct 35.5 % (36-47) L 07/30/24 03:55 MCV 99.4 fl (85-98) H 07/30/24 03:55 MCH 32.2 pg (27-33) 07/30/24 03:55 MCHC 32.4 g/dL (30-55) 07/30/24 03:55 RDW 13.1 % (12.1-15.1) 07/30/24 03:55 Plt Count 147 10^3/cmm (157-399) L 07/30/24 03:55 MPV 10.7 fL (7.4-10.4) H 07/30/24 03:55 Neut % (Auto) 68.6 % 07/30/24 03:55 Lymph % (Auto) 20.7 % 07/30/24 03:55 [place] % (Auto) 7.1 % 07/30/24 03:55 Eos % (Auto) 2.9 % 07/30/24 03:55 Baso % (Auto) 0.4 % 07/30/24 03:55 Neut # (Auto) 5.20 10^3/uL (1.8-7.7) 07/30/24 03:55 Lymph # (Auto) 1.6 10^3/uL (0.8-4.8) 07/30/24 03:55 [place] # (Auto) 0.5 10^3/uL (0.2-0.9) 07/30/24 03:55 Eos # (Auto) 0.2 10^3/uL (0.0-0.8) 07/30/24 03:55 Baso # (Auto) 0.0 10^3/uL (0.0-0.1) 07/30/24 03:55 Nucleated RBC % (auto) 0 % 07/30/24 03:55 Nucleated RBCs # 0.0 /100WBC 07/30/24 03:55 Sodium 143 mmol/L (136-145) 07/30/24 03:55 Potassium 3.8 mmol/L (3.5-5.1) 07/30/24 03:55 Chloride 104 mmol/L (98-107) 07/30/24 03:55 Carbon Dioxide 27 mmol/L (22-29) 07/30/24 03:55 Anion Gap 15.8 (5-19) 07/30/24 03:55 BUN 62 mg/dL (8-23) H 07/30/24 03:55 Creatinine 1.5 mg/dL (0.5-0.9) H 07/30/24 03:55 GFR Calculation Not Reportable 07/30/24 03:55 Glucose 103 mg/dL (65-115) 07/30/24 03:55 Calculated Osmolality 314 mOsm/kg (285-295) H 07/30/24 03:55 Calcium 9.4 mg/dL (8.5-10.5) 07/30/24 03:55 Magnesium 1.8 mg/dL (1.7-2.3) 07/30/24 03:55 Total Bilirubin 0.7 mg/dL (0.15-1.2) 07/29/24 07:30 AST 24 U/L (0-32) 07/29/24 07:30 ALT 29 U/L (0-33) 07/29/24 07:30 Alkaline Phosphatase 74 U/L (35-105) 07/29/24 07:30 Troponin T Baseline 52 ng/L (0-10) H 07/29/24 07:30 Troponin T 120 Minute 46.79 ng/L (0-10) H 07/29/24 09:16 Delta Troponin T -5.21 ABS# (0-10) L 07/29/24 09:16 Troponin T Hi Sens 6Hr 49.75 ng/L (0-10) H 07/29/24 20:55 Troponin T Hi Sens 6Hr Delta -2.25 ng/L (0-12) L 07/29/24 20:55 NT-Pro-B Natriuret Pep 2912 pg/mL (0-450) H 07/30/24 03:55 Total Protein 6.1 g/dL (6.6-8.7) L 07/29/24 07:30 Albumin 4.4 g/dL (3.5-5.2) 07/29/24 07:30 Globulin 1.7 g/dL (1.3-4.6) 07/29/24 07:30 TSH 4.57 uIU/mL (0.27-4.20) H 07/29/24 07:30 Urine Color Yellow (Yellow) 07/29/24 08:45 Urine Appearance Clear (CLEAR) 07/29/24 08:45 Urine pH 5.5 (5-7) 07/29/24 08:45 Ur Specific [place] 1.009 (1.005-1.030) 07/29/24 08:45 Urine Protein Negative (Negative) 07/29/24 08:45 Urine Glucose (UA) Negative (Normal) 07/29/24 08:45 Urine Ketones Negative (Negative) 07/29/24 08:45 Urine Blood Negative (Negative) 07/29/24 08:45 Urine Nitrate Negative (Negative) 07/29/24 08:45 Urine Bilirubin Negative (Negative) 07/29/24 08:45 Urine Urobilinogen 0.2 mg/dL (Negative) 07/29/24 08:45 Ur Leukocyte Esterase Negative (Negative) 07/29/24 08:45 Urine RBC 0-2 /hpf (0-2) 07/29/24 08:45 Urine WBC 0-5 /hpf (0-5) 07/29/24 08:45 Ur Squamous Epith Cells 0-5 /hpf (0-5) 07/29/24 08:45 Amorphous Sediment Not Reportable 07/29/24 08:45 Urine Bacteria None seen /hpf (NONE) 07/29/24 08:45 Hyaline Casts 1.21 /lpf 07/29/24 08:45 Coronavirus 229E (PCR) Not detected (NOT DETECT) 07/29/24 08:16 SARS-CoV-2 (PCR) Not detected (NOT DETECT) 07/29/24 08:16 Radiology Impressions Chest X-Ray 07/29/24 07:58 Impression: Atherosclerosis. Head CT 07/29/24 07:58 Impression: Moderate cerebral atrophy. Recent Clincial Data Last Vital Signs Temp 98 F 07/31/24 04:00 Pulse 71 07/31/24 04:00 Resp 23 H 07/31/24 04:00 BP 155/74 07/31/24 04:00 Pulse Ox 95 07/31/24 04:00 O2 Del Method Room Air 07/31/24 04:00 Vital Signs Temp Pulse Resp BP Pulse Ox O2 Del Method 12/19/24 04:00 98 F 71 23 H 155/74 95 Room Air 07/31/24 00:00 97.7 F 81 22 H 145/59 98 Room Air 07/30/24 20:00 97.7 F 66 21 H 163/72 96 Room Air Intake & Output/Weight 07/29/24 07/30/24 07/31/24 08/01/24 06:59 06:59 06:59 06:59 Intake Total 780 / 780 1080 / 1080 Output Total 300 / 300 400 / 400 Balance 480 / 480 680 / 680 Weight 105.279 kg 105.097 kg Vitals Last Vital Signs Temp 98 F 07/31/24 04:00 Pulse 71 07/31/24 04:00 Resp 23 H 07/31/24 04:00 BP 155/74 07/31/24 04:00 Pulse Ox 95 07/31/24 04:00 O2 Del Method Room Air 07/31/24 04:00 TS Medications Medications Acetaminophen (Acetaminophen 325 Mg Tablet) 650 mg PO Q6H PRN PRN Reason: Mild/Mod Pain Or Temp >/= 101 Last Admin: 07/31/24 02:01 Dose: 650 mg Enoxaparin Sodium (Enoxaparin 100 Mg/Ml Syringe) 100 mg 1 mg/kg (100 mg) SUBCUT Q12H [facility] Last Admin: 07/30/24 21:14 Dose: 100 mg Escitalopram Oxalate (Escitalopram 10 Mg Tablet) 20 mg PO QAM [facility] Last Admin: 07/31/24 05:49 Dose: 20 mg Losartan Potassium (Losartan 50 Mg Tablet) 50 mg PO DAILY [facility] Ondansetron HCl (Ondansetron 2 Mg/Ml Sdv 2 Ml) 4 mg IVP Q6H PRN PRN Reason: vomiting, or N/V if npo Discontinued Medications Sodium Chloride (Sodium Chloride 0.9%) 250 mls @ 250 mls/hr IV ONCE ONE Stop: 07/29/24 15:26 Last Admin: 07/29/24 15:03 Dose: 250 mls/hr Losartan Potassium (Losartan 50 Mg Tablet) 25 mg PO DAILY [facility] Last Admin: 07/30/24 08:28 Dose: 25 mg Losartan Potassium (Losartan 50 Mg Tablet) 25 mg PO NOW ONE Stop: 07/30/24 14:16 Last Admin: 07/30/24 14:16 Dose: 25 mg Allergies codeine Adverse Reaction (Verified 07/07/24 08:43) ADR-Itching desvenlafaxine [From Pristiq] Adverse Reaction (Verified 07/07/24 08:43) Unknown pt stated makes her suicidal red meat Allergy (Uncoded 07/07/24 08:43) Unknown Home Medications potassium chloride 20 mEq tablet,extended release 40 meq (2 x 20 mEq) PO DAILY #90 tabs 05/27/24 [Rx Confirmed 07/29/24] torsemide 20 mg tablet 40 mg (2 x 20 mg) PO BID #180 tabs 05/27/24 [Rx Confirmed 07/29/24] escitalopram oxalate 20 mg tablet 20 mg PO QAM #90 tabs 07/07/24 [Rx Confirmed 07/29/24] meloxicam 15 mg tablet 15 mg PO DAILY PRN shoulder pain #20 tabs 07/07/24 [Rx Confirmed 07/29/24] acetaminophen 325 mg tablet (Tylenol) 650 mg PO QID PRN pain or fever 07/29/24 [History Confirmed 07/29/24] apixaban 5 mg tablet (Eliquis) 5 mg PO BID 07/29/24 [History Confirmed 07/29/24] metoprolol tartrate 25 mg tablet 25 mg PO BID 07/29/24 [History Confirmed 07/29/24] valsartan 40 mg tablet 40 mg PO DAILY 07/29/24 [History Confirmed 07/29/24] Discharge Plan Discharge Patient Disposition: Home Condition: Stable Prescriptions: No Action torsemide 20 mg tablet 40 mg PO BID Qty: 180 1RF Rx Instructions: take in the AM and at noon potassium chloride 20 mEq tablet extended release 40 meq PO DAILY Qty: 90 2RF escitalopram oxalate 20 mg tablet 20 mg PO QAM Qty: 90 1RF meloxicam 15 mg tablet 15 mg PO DAILY PRN (Reason: shoulder pain ) Qty: 20 0RF acetaminophen [Tylenol] 325 mg Tablet 650 mg PO QID PRN (Reason: pain or fever ) valsartan 40 mg tablet 40 mg PO DAILY Rx Instructions: TAKE 1 TABLET BY MOUTH EVERY DAY metoprolol tartrate 25 mg tablet 25 mg PO BID Rx Instructions: TAKE 1 TABLET BY MOUTH TWICE DAILY Eliquis 5 mg tablet 5 mg PO BID Rx Instructions: TAKE 1 TABLET BY MOUTH TWICE DAILY Discharge Orders: Transfer Out of Facility (Order); Ordered 07/31/24 Ordered By: Evelio Fernando Referrals: Andreas Tineo MD [Primary Care Provider] - 08/21/24 9:30 am Patient Instructions: Atrial Fibrillation, Bradycardia, Syncope, Chronic Hypertension (DC), Opioid Safety Transfer Attestations Time Spent in Transfer Care: greater than 30 min Quality Metrics Clinical Quality Measures [ No reported AMI, CVA or VTE this stay] Coding Level of Care Code 20710 Total time (in minutes) for Discharge: 35 Diagnoses Bradycardia R00.1 Atrial fibrillation I48.91 Atrial fibrillation type: unspecified Essential hypertension I10 Syncope, unspecified syncope type R55 Syncope type: unspecified
[2024-07-31 08:00] VITALS: BP 164/85; PULSE 82; RESP 20; TEMP 37; O2SAT 97
[2024-07-31 08:52] LABS: Basophils % 0.2 %; Eosinophils # 0.2 10^3/uL (0.0-0.8); Hematocrit 36.5 % (36-47); Lymphocytes # 1.1 10^3/uL (0.8-4.8); Lymphocytes % 13.6 %; Mean Corpuscular HGB Conc 33.2 g/dL (30-55); Mean Corpuscular Hemoglobin 32.5 pg (27-33); Mean Corpuscular Volume 98.1 fl (85-98); Mean Platelet Volume 10.7 fL (7.4-10.4); Monocytes # 0.6 10^3/uL (0.2-0.9); Monocytes % 7.5 %; Neutrophils # 6.23 10^3/uL (1.8-7.7); Neutrophils % 76.6 %; Nucleated Red Blood Cells % 0 %; Platelet Count 186 10^3/cmm (157-399); Red Blood Count 3.72 10^6/uL (3.85-5.65); Red Cell Distribution Width 13.1 % (12.1-15.1); White Blood Count 8.14 10^3/uL (3.29-11.43)
[2024-07-31 09:08] LABS: Blood Urea Nitrogen 28 mg/dL (8-23); Calcium 9.3 mg/dL (8.5-10.5); Carbon Dioxide 26 mmol/L (22-29); Chloride 106 mmol/L (98-107); Creatinine Clr Calc Pharmacy 50.3983; Glucose 107 mg/dL (65-115); Osmolality Calculated 306 mOsm/kg (285-295); Sodium 145 mmol/L (136-145)
[2024-07-31 09:09] LABS: Anion Gap 16.8 (5-19); Potassium 3.8 mmol/L (3.5-5.1)
[2024-07-31 09:12] VITALS: BP 164/85
[2024-07-31] MEDS: losartan 50 mg Tablet PO (09:12)
--- NOTE | 2024-07-31 11:12 | P.PN_ITS ---
<Statement entered by Edgar Winston MD - 08/01/24 10:32> Mabel discussed this patient's current status with me. Concurred with the plan Subjective 2 Subjective: Patient was seen this morning in bed comfortable. She denies any abnormal symptoms such as chest pain or shortness of breath. Last night she had an 8 second pause seen on the monitor. Medications: Reviewed: Yes Vitals/I&O/Wt Last Vital Signs Temp 97.7 F 07/31/24 12:00 Pulse 68 07/31/24 12:00 Resp 18 07/31/24 12:00 BP 152/71 07/31/24 12:00 Pulse Ox 98 07/31/24 12:00 O2 Del Method Room Air 07/31/24 12:00 07/31/24 07/31/24 07/31/24 06:59 14:59 22:59 Intake Total 240 / 1080 Output Total 400 / 400 Balance -160 / 680 Weight last 48 hrs Weight 231 lb 11.2 oz Weight 232 lb 1.6 oz Physical Exam 2 Narrative: General Exam no distress Neck is supple Cardiovascular irregular, irregular rhythm with controlled rate Lungs clear throughout all lung sharma Abdomen soft Extremities no cyanosis clubbing edema Data 07/31/24 07:59 07/31/24 07:59 A&P Assessment and plan (1) Bradycardia: Will be transfererd to [facility] for possible pacemaker due to 8 second pause and hx of syncope (2) Atrial fibrillation: Patient seems to have intermittent atrial fibrillation. Currently she is in normal sinus rhythm. Qualifiers: Atrial fibrillation type: unspecified Qualified Code(s): I48.91 - Unspecified atrial fibrillation (3) Essential hypertension: The blood pressure is fairly under control. (4) Syncope: Most likely related to the sinus pauses/bradycardia Qualifiers: Syncope type: unspecified Qualified Code(s): R55 - Syncope and collapse Plan Dr. Mcnair accepted her transfer for further management and possible pacemaker placement.. She is awaiting a bed at [facility] Attestations 2 Medical Necessity Statement*: Patient getting transferred for possible pacemaker placement. Coding Level of Care Code Acute Code for g Fwd Diagnoses Bradycardia R00.1 Atrial fibrillation I48.91 Atrial fibrillation type: unspecified Essential hypertension I10 Syncope, unspecified syncope type R55 Syncope type: unspecified
[2024-07-31 12:00] VITALS: BP 152/71; PULSE 68; RESP 18; TEMP 36.5; O2SAT 98
== END 2024-07-31 14:42 | disposition home or self-care (01) ==
LOC: ER 09:17 → CSU 12:36 → ER IP 07-30 09:02
PROVIDERS: Internal Medicine Cardiovascular Disease; Admitting Provider Internal Medicine; Emergency Provider Family Medicine; PCP Family Medicine; Visit Provider Internal Medicine
DX: R00.1 Bradycardia, unspecified (principal); I48.91 Unspecified atrial fibrillation; I10 Essential (primary) hypertension; R55 Syncope and collapse; Z79.01 Long term (current) use of anticoagulants; N17.9 Acute kidney failure, unspecified; G47.30 Sleep apnea, unspecified
CPT/HCPCS: 36415; 70450; 71045; 80048; 80053; 81001; 83735; 83880; 84443; 84484; 85025; 87635; 93005; 93306; 96360; 96372; 96376; 99285; A9270; G0378; J1650; J7050

== ENCOUNTER → 2024-08-21 10:06 | Outpatient (BNVA) | payer MEDICARE, SELFPAY | PROVIDERS: PCP Family Medicine; Visit Provider Family Medicine | DX: I48.91 Unspecified atrial fibrillation (principal); Z09 Encounter for follow-up examination after completed treatment for conditions other than malignant neoplasm; I10 Essential (primary) hypertension; E87.70 Fluid overload, unspecified; F33.42 Major depressive disorder, recurrent, in full remission; M19.011 Primary osteoarthritis, right shoulder; L03.115 Cellulitis of right lower limb; R00.1 Bradycardia, unspecified | CPT/HCPCS: 80048 ==

== ENCOUNTER → 2025-01-07 14:18 | Outpatient (BNVA) | payer MEDICARE, SELFPAY | PROVIDERS: PCP Family Medicine; Visit Provider Family Medicine | DX: I10 Essential (primary) hypertension (principal) | CPT/HCPCS: 80053; 85025 ==